=== PATIENT | male | born 1950 | race Caucasian/White ===

== ENCOUNTER → 2020-01-27 | Outpatient (CLI) | payer MEDICARE ==
[~2020-01-27] MED LIST: AEC81 PO; AMLO-97 PO; ASPI-1181 PO; BENA40TA9 PO; CELE200 PO; CELE200C PO; CLOP75TA32 PO; DIGOXIN PO; DILT360T14 PO; FISH1CAP27 PO; HYDR12.54 PO; NEBI20TA2 PO; NITR0.4T50 SL; REGADENOSON 0.4 MG/5 ML PF SYG IVP SCH; RIVA20TA PO; ROSU5TAB12 PO; SPIR25TA6 PO; TADA5TAB PO; VITAD50000 PO
== END | disposition home or self-care (01) ==
LOC: SHCH 07:38
PROVIDERS: ATTEND Internal Medicine Cardiovascular Disease
DX: I21.09 ST elevation (STEMI) myocardial infarction involving other coronary artery of anterior wall (principal); I21.19 ST elevation (STEMI) myocardial infarction involving other coronary artery of inferior wall; I25.10 Atherosclerotic heart disease of native coronary artery without angina pectoris
CPT/HCPCS: 78452; 93017; 96374; A9500 ×2; J2785

== ENCOUNTER 2020-02-14 05:28 | Day surgery (SDC) | payer MEDICARE ==
[2020-02-14] VITALS (10 sets, daily range): BP systolic 111–157; BP diastolic 61–89
[~2020-02-14 05:28] MED LIST changes: -AMLO-97 PO; -ASPI-1181 PO; -CELE200 PO; -CLOP75TA32 PO; -DIGOXIN PO; -FISH1CAP27 PO; -HYDR12.54 PO; -NEBI20TA2 PO; -REGADENOSON 0.4 MG/5 ML PF SYG IVP SCH; -VITAD50000 PO
[2020-02-14 06:16] LABS: BASOPHILS % (AUTO) 0.8 % (0.0-5.0); EOSINOPHILS % (AUTO) 3.3 % (0.0-8.0); HEMATOCRIT 43.5 % (42-54); LYMPHOCYTES % (AUTO) 29.6 % (21.0-51.0); MEAN CORPUSCULAR HGB CONC 32.2 g/dL (32.0-36.0); MONOCYTES % (AUTO) 7.9 % (3.0-13.0); NEUTROPHILS % (AUTO) 57.3 % (40.0-77.0); PLATELET COUNT (AUTO) 197 K/uL (130-400); RED BLOOD CELL COUNT(AUTO) 5.18 MIL/uL (4.50-6.20); RED CELL DISTRIBUTION WIDTH 14.5 % (11.0-15.5); WHITE BLOOD COUNT (AUTO) 6.6 K/uL (4.8-10.8)
[2020-02-14 06:25] LABS: INR 1.06 (0.85-1.15); PARTIAL THROMBOPLASTIN TIME 29.9 SEC (26.3-35.5); PROTHROMBIN TIME 11.4 SEC (9.6-11.6)
[2020-02-14 06:34] LABS: CREATININE 1.1 mg/dL (0.5-1.5); POTASSIUM 4.4 mmol/L (3.5-5.1)
[2020-02-14 06:36] LABS: APPEARANCE,URINE Clear (CLEAR); BILIRUBIN,URINE Negative (NEGATIVE); COLOR,URINE Yellow (YELLOW); GLUCOSE, URINE (UA) Negative (NEGATIVE); KETONES,URINE Negative (NEGATIVE); LEUKOCYTE ESTERASE ,URINE Negative (NEGATIVE); NITRATE,URINE Negative (NEGATIVE); OCCULT BLOOD,URINE Negative (NEGATIVE); PROTEIN,URINE Negative (NEGATIVE)
[2020-02-14] MEDS ORDERED: IOHEXOL 350 MG/ML 100ML INFUS..BTL IV ONE (07:15)
[2020-02-14] MEDS ORDERED: NITROGLYCERIN 2 MG/VIAL VIAL IV ONE (07:15)
[2020-02-14] MEDS ORDERED: HEPARIN SODIUM 1000UNIT/ML 10ML VIAL ONE (07:15)
[2020-02-14] MEDS ORDERED: LIDOCAINE HCL 2% 20ML ONE (07:16)
[2020-02-14] MEDS ORDERED: IOHEXOL-350 50ML VIAL IV ONE (07:16)
[2020-02-14] MEDS ORDERED: SODIUM CHLORIDE 0.9% 1000ML 1,000 ML IV SCH (08:00)
[2020-02-14] MEDS ORDERED: VITAD50000 PO (08:02)
== END 2020-02-14 12:30 | disposition home or self-care (01) ==
LOC: DAH 05:28
PROVIDERS: ATTEND Internal Medicine Cardiovascular Disease
DX: R94.39 Abnormal result of other cardiovascular function study (principal); I25.119 Atherosclerotic heart disease of native coronary artery with unspecified angina pectoris; I10 Essential (primary) hypertension; E11.9 Type 2 diabetes mellitus without complications; E78.5 Hyperlipidemia, unspecified; I48.20 Chronic atrial fibrillation, unspecified; Z88.8 Allergy status to other drugs, medicaments and biological substances; Z79.01 Long term (current) use of anticoagulants; Z79.899 Other long term (current) drug therapy
CPT/HCPCS: 36415; 71045; 80048; 81003; 85025; 85610; 85730; 93005; 93458; A4215; A4216; A4221; A4222; A4223 ×3; A4606; A4663; C1769; C1894; J1644 ×2; J3490 ×2; J7030; Q9965; Q9967 ×2

== ENCOUNTER 2020-12-27 09:19 | Emergency (ER) | payer MEDICARE ==
[~2020-12-27 09:19] MED LIST changes: +VITAD50000 PO
[2020-12-27] MEDS ORDERED: HYDROCODONE/ACETAMINOPHEN 10/325 MG TAB ONE (12:31)
== END 2020-12-27 13:10 | disposition home or self-care (01) ==
LOC: EDH 09:19
DX: S46.911A Strain of unspecified muscle, fascia and tendon at shoulder and upper arm level, right arm, initial encounter (principal); I48.91 Unspecified atrial fibrillation; I25.10 Atherosclerotic heart disease of native coronary artery without angina pectoris; E78.5 Hyperlipidemia, unspecified; I10 Essential (primary) hypertension; Z88.8 Allergy status to other drugs, medicaments and biological substances; X58.XXXA Exposure to other specified factors, initial encounter; Y93.89 Activity, other specified; Y92.89 Other specified places as the place of occurrence of the external cause; Y99.8 Other external cause status
CPT/HCPCS: 73030

== ENCOUNTER → 2023-11-24 | Outpatient (CLI) | payer MEDICARE ==
[~2023-11-24] MED LIST changes: -BENA40TA9 PO; +BENA40TA92 PO
[2023-11-24 15:21] LABS: BASOPHILS # (AUTO) 0.05 K/uL (0.00-0.20); BASOPHILS % (AUTO) 0.7 % (0.0-5.0); EOSINOPHILS # (AUTO) 0.19 K/uL (0.00-0.70); EOSINOPHILS % (AUTO) 2.6 % (0.0-8.0); HEMATOCRIT 26.2 % (42-54); IMMATURE GRANULOCYTE ABSOLUTE 0.06 K/uL (0-1); LYMPHOCYTES # (AUTO) 1.3 K/uL (1.0-4.8); LYMPHOCYTES % (AUTO) 17.4 % (21.0-51.0); MEAN CORPUSCULAR HEMOGLOBIN 25.4 pg (27.0-33.0); MEAN CORPUSCULAR HGB CONC 29.8 g/dL (32.0-36.0); MEAN CORPUSCULAR VOLUME 85.3 fL (79-99); MONOCYTES # (AUTO) 0.8 K/uL (0.1-1.0); MONOCYTES % (AUTO) 10.8 % (3.0-13.0); NEUTROPHILS # (AUTO) 4.9 K/uL (1.8-7.7); NEUTROPHILS % (AUTO) 67.7 % (40.0-77.0); PLATELET COUNT (AUTO) 198 K/uL (130-400); RED BLOOD CELL COUNT(AUTO) 3.07 MIL/uL (4.50-6.20); RED CELL DISTRIBUTION WIDTH 17.2 % (11.0-15.5); WHITE BLOOD COUNT (AUTO) 7.3 K/uL (4.8-10.8)
[2023-11-24 15:29] LABS: CREATININE 1.2 mg/dL (0.5-1.5); POTASSIUM 4.2 mmol/L (3.5-5.1)
== END | disposition home or self-care (01) ==
LOC: LAB 13:01
PROVIDERS: ATTEND Internal Medicine Cardiovascular Disease
DX: E78.5 Hyperlipidemia, unspecified (principal)
CPT/HCPCS: 36415; 80048; 85025

== ENCOUNTER → 2023-11-28 | Outpatient (CLI) | payer MEDICARE ==
[~2023-11-28] MED LIST changes: +REGADENOSON 0.4 MG/5 ML PF SYG IVP ONE
== END | disposition home or self-care (01) ==
LOC: SHCH 07:49
PROVIDERS: ATTEND Internal Medicine Cardiovascular Disease
DX: I48.91 Unspecified atrial fibrillation (principal); I25.119 Atherosclerotic heart disease of native coronary artery with unspecified angina pectoris
CPT/HCPCS: 78452; 96374; 93017; J2785; A9500 ×2

== ENCOUNTER → 2023-11-29 | Outpatient (CLI) | payer MEDICARE ==
[~2023-11-29] MED LIST changes: -REGADENOSON 0.4 MG/5 ML PF SYG IVP ONE
== END | disposition home or self-care (01) ==
LOC: LAB 10:36
PROVIDERS: ATTEND Internal Medicine Cardiovascular Disease
DX: K92.1 Melena (principal)
CPT/HCPCS: 82270

== ENCOUNTER → 2023-12-20 | Outpatient (CLI) | payer MEDICARE ==
[~2023-12-20] MED LIST changes: -AEC81 PO; -CELE200C PO; +CEPH500C2 PO; +OMEP40CA21 PO; -RIVA20TA PO; -TADA5TAB PO; +UBID100C45 PO
== END | disposition home or self-care (01) ==
LOC: RAH 15:58
PROVIDERS: ATTEND Internal Medicine Cardiovascular Disease
DX: I80.202 Phlebitis and thrombophlebitis of unspecified deep vessels of left lower extremity (principal); R60.0 Localized edema; Z79.899 Other long term (current) drug therapy; I10 Essential (primary) hypertension; I48.20 Chronic atrial fibrillation, unspecified; Z79.01 Long term (current) use of anticoagulants; E78.5 Hyperlipidemia, unspecified
CPT/HCPCS: 93971

== ENCOUNTER → 2023-12-26 | Outpatient (CLI) | payer MEDICARE ==
[2023-12-26 16:28] LABS: BASOPHILS # (AUTO) 0.09 K/uL (0.00-0.20); EOSINOPHILS # (AUTO) 0.35 K/uL (0.00-0.70); HEMATOCRIT 32.2 % (42-54); IMMATURE GRANULOCYTE ABSOLUTE 0.06 K/uL (0-1); LYMPHOCYTES # (AUTO) 1.1 K/uL (1.0-4.8); LYMPHOCYTES % (AUTO) 11.9 % (21.0-51.0); MEAN CORPUSCULAR HEMOGLOBIN 23.5 pg (27.0-33.0); MEAN CORPUSCULAR HGB CONC 29.8 g/dL (32.0-36.0); MEAN CORPUSCULAR VOLUME 78.7 fL (79-99); MONOCYTES % (AUTO) 11.4 % (3.0-13.0); NEUTROPHILS # (AUTO) 6.3 K/uL (1.8-7.7); PLATELET COUNT (AUTO) 492 K/uL (130-400); RED BLOOD CELL COUNT(AUTO) 4.09 MIL/uL (4.50-6.20); RED CELL DISTRIBUTION WIDTH 19.5 % (11.0-15.5); WHITE BLOOD COUNT (AUTO) 8.8 K/uL (4.8-10.8)
== END | disposition home or self-care (01) ==
LOC: LAB 12:59
PROVIDERS: ATTEND Internal Medicine Cardiovascular Disease
DX: E78.5 Hyperlipidemia, unspecified (principal)
CPT/HCPCS: 36415; 85025

== ENCOUNTER → 2023-12-27 | Outpatient (CLI) | payer MEDICARE | END | disposition home or self-care (01) | LOC: LAB 12-26 13:51 | PROVIDERS: ATTEND Internal Medicine Cardiovascular Disease | DX: E78.5 Hyperlipidemia, unspecified (principal) | CPT/HCPCS: 82270 ==

== ENCOUNTER 2024-02-15 07:17 | Day surgery (SDC) | payer MEDICARE ==
[2024-02-13 15:13] LABS: BASOPHILS # (AUTO) 0.07 K/uL (0.00-0.20); EOSINOPHILS # (AUTO) 0.24 K/uL (0.00-0.70); EOSINOPHILS % (AUTO) 3.3 % (0.0-8.0); HEMATOCRIT 34.8 % (42-54); LYMPHOCYTES # (AUTO) 1.5 K/uL (1.0-4.8); LYMPHOCYTES % (AUTO) 20.4 % (21.0-51.0); MEAN CORPUSCULAR HEMOGLOBIN 24.9 pg (27.0-33.0); MEAN CORPUSCULAR HGB CONC 30.7 g/dL (32.0-36.0); MEAN CORPUSCULAR VOLUME 81.1 fL (79-99); MONOCYTES # (AUTO) 0.7 K/uL (0.1-1.0); MONOCYTES % (AUTO) 9.1 % (3.0-13.0); NEUTROPHILS # (AUTO) 4.6 K/uL (1.8-7.7); NEUTROPHILS % (AUTO) 63.5 % (40.0-77.0); PLATELET COUNT (AUTO) 210 K/uL (130-400); RED BLOOD CELL COUNT(AUTO) 4.29 MIL/uL (4.50-6.20); RED CELL DISTRIBUTION WIDTH 21.7 % (11.0-15.5); WHITE BLOOD COUNT (AUTO) 7.3 K/uL (4.8-10.8)
[2024-02-13 15:22] LABS: BILIRUBIN,URINE NEGATIVE (NEGATIVE); GLUCOSE, URINE (UA) NEGATIVE (NEGATIVE); KETONES,URINE NEGATIVE (NEGATIVE); LEUKOCYTE ESTERASE ,URINE 250 Leu/uL (NEGATIVE); NITRATE,URINE NEGATIVE (NEGATIVE); OCCULT BLOOD,URINE LARGE (NEGATIVE); PH,URINE 5.5 (5.0-8.0); PROTEIN,URINE 100 mg/dL (NEGATIVE)
[2024-02-13 15:26] LABS: ADD UA MICROSCOPIC YES; APPEARANCE,URINE CLOUDY (CLEAR); COLOR,URINE DARK YELLOW (YELLOW)
[2024-02-13 15:31] LABS: BACTERIA,URINE MOD /HPF (None Seen); RBC,URINE TNTC /HPF (0-1); SQUAMOUS EPITHELIAL CELL,UR RARE /HPF (0-2); WBC,URINE 51-100 /HPF (0-1)
[2024-02-13 15:38] LABS: INR 0.98 (0.85-1.15); PROTHROMBIN TIME 11.6 SEC (9.6-11.6)
[2024-02-13 15:39] LABS: PARTIAL THROMBOPLASTIN TIME 28.8 SEC (26.3-35.5)
[2024-02-13 15:49] LABS: CREATININE 1.2 mg/dL (0.5-1.3); POTASSIUM 4.3 mmol/L (3.5-5.1)
[2024-02-13 15:58] VITALS: BP 129/72; PULSE 71; RESP 18
[~2024-02-15] VITALS: Ht 185.4 cm; Wt 115.8 kg
[2024-02-15] VITALS (14 sets, daily range): BP systolic 104–128; BP diastolic 50–83; PULSE 67–86; RESP 14–16
[~2024-02-15 07:17] MED LIST changes: +ACET325C6 PO; +AEC81 PO; +ASCO500C18 PO; -CEPH500C2 PO; +CHOL400T4 PO; +CLOP75TA32 PO; +FOLI0.8C PO; -NITR0.4T50 SL; +OMEP20CA12 PO; -OMEP40CA21 PO; -VITAD50000 PO; +VITAMIN B12 PO
[2024-02-15] MEDS ORDERED: SUCCINYLCHOLINE CHLORIDE 20 MG/ML 10 ML VIAL ONE (07:57)
[2024-02-15] MEDS ORDERED: MIDAZOLAM HCL 1 MG/ML 2ML VIAL ONE (07:57)
[2024-02-15] MEDS ORDERED: PROPOFOL 10 MG/ML 20ML VIAL IV ONE (07:57)
[2024-02-15] MEDS ORDERED: FENTANYL CITRATE PF 50 MCG/1 ML 2ML VIAL ONE (07:58)
[2024-02-15] MEDS ORDERED: ROCURONIUM BROMIDE 10MG/1ML 5ML VL ONE (07:58)
[2024-02-15] MEDS: CEFTRIAXONE 1G VIAL ONE (07:59)
[2024-02-15] MEDS: LACTATED RINGERS 1000ML 1,000 ML IV ONE (08:00)
[2024-02-15] MEDS ORDERED: EPHEDRINE SULFATE 50 MG/ML AMPULE ONE (08:01)
[2024-02-15] MEDS ORDERED: PHENYLEPHRINE HCL 10 MG/ML 1ML VIAL IV ONE (08:03)
[2024-02-15] MEDS: CEFTRIAXONE 2GM VIAL IVPB ONE (09:42)
[2024-02-15] MEDS ORDERED: ONDANSETRON 4MG INJ ONE (09:49)
== END 2024-02-15 12:10 | disposition home or self-care (01) ==
LOC: DAH 07:17
PROVIDERS: ATTEND Urology
DX: Z46.6 Encounter for fitting and adjustment of urinary device (principal); N20.1 Calculus of ureter; I10 Essential (primary) hypertension; E78.5 Hyperlipidemia, unspecified; I48.91 Unspecified atrial fibrillation; G47.30 Sleep apnea, unspecified; Z79.899 Other long term (current) drug therapy; Z98.890 Other specified postprocedural states; Z85.51 Personal history of malignant neoplasm of bladder; Z79.01 Long term (current) use of anticoagulants; Z88.8 Allergy status to other drugs, medicaments and biological substances; Z88.3 Allergy status to other anti-infective agents; Z91.041 Radiographic dye allergy status; Z98.49 Cataract extraction status, unspecified eye; Z79.82 Long term (current) use of aspirin
CPT/HCPCS: 80048; 85025; 85610; 85730; 87088; 81001; 36415; 74018; 71045; 93005; 50590; 52310; A4663; J7120; J3010; J0330; J0696 ×2; J3490 ×2; J2250; J2704; J2405; J2371; A4930; A4215; A4223; A4222; A4221; A4600

== ENCOUNTER 2024-02-18 20:11 | Emergency (ER) | payer MEDICARE ==
[~2024-02-18] VITALS: Ht 185.4 cm; Wt 117.5 kg
[2024-02-18 20:47] LABS: BASOPHILS # (AUTO) 0.05 K/uL (0.00-0.20); BASOPHILS % (AUTO) 0.5 % (0.0-5.0); EOSINOPHILS # (AUTO) 0.08 K/uL (0.00-0.70); EOSINOPHILS % (AUTO) 0.7 % (0.0-8.0); HEMATOCRIT 32.4 % (42-54); IMMATURE GRANULOCYTE ABSOLUTE 0.18 K/uL (0-1); LYMPHOCYTES # (AUTO) 0.9 K/uL (1.0-4.8); MEAN CORPUSCULAR HEMOGLOBIN 26.2 pg (27.0-33.0); MEAN CORPUSCULAR HGB CONC 33.3 g/dL (32.0-36.0); MEAN CORPUSCULAR VOLUME 78.5 fL (79-99); MONOCYTES % (AUTO) 8.6 % (3.0-13.0); NEUTROPHILS # (AUTO) 8.9 K/uL (1.8-7.7); NEUTROPHILS % (AUTO) 80.6 % (40.0-77.0); PLATELET COUNT (AUTO) 169 K/uL (130-400); RED BLOOD CELL COUNT(AUTO) 4.13 MIL/uL (4.50-6.20); RED CELL DISTRIBUTION WIDTH 21.6 % (11.0-15.5); WHITE BLOOD COUNT (AUTO) 11.1 K/uL (4.8-10.8)
[2024-02-18 21:10] LABS: ALBUMIN 4.2 g/dL (3.5-5.0); BILIRUBIN,TOTAL 0.8 mg/dL (0.2-1.0); CREATININE 1.5 mg/dL (0.5-1.3); POTASSIUM 4.1 mmol/L (3.5-5.1); TOTAL PROTEIN, SERUM 7.7 g/dL (6.0-8.3)
[2024-02-18] MEDS: ONDANSETRON 4MG INJ IVP ONE (21:15)
[2024-02-18 21:16] LABS: WBC MORPHOLOGY CONSISTENT W/DIFF
[2024-02-18] MEDS: MORPHINE 4 MG SYG IVP ONE (21:16)
[2024-02-18 21:31] LABS: APPEARANCE,URINE CLEAR (CLEAR); BILIRUBIN,URINE NEGATIVE (NEGATIVE); COLOR,URINE LIGHT-YELLOW (YELLOW); GLUCOSE, URINE (UA) NEGATIVE (NEGATIVE); KETONES,URINE NEGATIVE (NEGATIVE); LEUKOCYTE ESTERASE ,URINE NEGATIVE Leu/uL (NEGATIVE); NITRATE,URINE NEGATIVE (NEGATIVE); OCCULT BLOOD,URINE NEGATIVE (NEGATIVE); PROTEIN,URINE NEGATIVE (NEGATIVE); UROBILINOGEN,URINE 0.2 mg/dL (0.2-1.0)
[2024-02-18 21:34] LABS: ADD UA MICROSCOPIC NO
[2024-02-18] MEDS: HYDROCODONE/ACETAMINOPHEN 5/325 MG TAB PO ONE (23:17)
[2024-02-18] MEDS: TAMSULOSIN HCL 0.4 MG CAP.ER.24H PO ONE (23:17)
[2024-02-18 23:23] VITALS: BP 136/72; PULSE 78; RESP 18; O2SAT 97
== END 2024-02-18 23:51 | disposition home or self-care (01) ==
LOC: EDH 20:11
DX: R14.0 Abdominal distension (gaseous) (principal); N20.1 Calculus of ureter; I12.9 Hypertensive chronic kidney disease with stage 1 through stage 4 chronic kidney disease, or unspecified chronic kidney disease; N18.9 Chronic kidney disease, unspecified; Z79.82 Long term (current) use of aspirin; Z79.899 Other long term (current) drug therapy; Z98.890 Other specified postprocedural states; Z88.8 Allergy status to other drugs, medicaments and biological substances
CPT/HCPCS: 99285; 74176; 96374; 96375; 80053; 83690; 85025; 81003; 36415; J2405; J2270

== ENCOUNTER → 2024-02-20 | Outpatient (CLI) | payer MEDICARE | END | disposition home or self-care (01) | LOC: RAH 15:18 | PROVIDERS: ATTEND Urology | DX: N20.0 Calculus of kidney (principal); M47.815 Spondylosis without myelopathy or radiculopathy, thoracolumbar region | CPT/HCPCS: 74018 ==

== ENCOUNTER → 2024-02-29 | Outpatient (CLI) | payer MEDICARE | END | disposition home or self-care (01) | LOC: RAH 11:17 | PROVIDERS: ATTEND Urology | DX: N20.1 Calculus of ureter (principal) | CPT/HCPCS: 74018 ==

== ENCOUNTER 2025-10-30 10:49 | Inpatient (IN) | payer MEDICARE ==
[~2025-10-30] VITALS: Ht 185.4 cm; Wt 122.5 kg
[2025-10-30 11:00] VITALS: O2SAT 97
--- NOTE | 2025-10-30 11:39 | HP ---
[facility] HISTORY AND PHYSICAL Date of Service: Oct 30, 2025 Time of Service: 11:39 HISTORY OF PRESENT ILLNESS: 75 Year old Male past medical history of hypertension, hyperlipidemia, history of atrial fibrillation status post Watchman device, history of chronic anemia, history of bladder cancer being followed by Urology as outpatient who presented to the hospital secondary to pain and swelling in the bilateral lower extremity. Patient states his symptoms have been present for the past four weeks. Patient noted swelling in the lower extremities bilaterally and he has developed multiple wounds in his right and left lower extremity. He is also having yellowish serous drainage from both the wounds bilaterally. He denies any fever, chills, chest pain, shortness of breath, abdominal pain, nausea, vomiting. Denied any falls, syncopal episode. He has not seen wound care yet but was going to follow up with Dr. Tahir dacosta as outpatient. He went to see Dr. Ricardo today with Cardiology. He was admitted directly from cardiology clinic for concern for critical limb ischemia. The patient additionally takes Teachey 7.5 mg q.6 hours PRN and states his pain is 10/10 in intensity. He also is on gabapentin at home. Denied any constipation, diarrhea. He has been passing flatus a two. Additionally he has a history of bladder cancer which is being followed by Urology. He is currently not on chem otherapy. His urologist is in [place]. Labs are currently pending REVIEW OF SYSTEMS CONSTITUTIONAL: Denies fevers, chills, or night sweats. No unintentional weight loss reported. NEUROLOGICAL: Denies headache, amaurosis fugax, motor weakness, sensory deficit, vertigo/spinning sensation, gait abnormalities, or tremors. ENT: No hearing loss, otalgia, otorrhea, rhinitis, rhinorrhea, hoarseness, or sore throat. CARDIOVASCULAR: Denies any exertional angina, dyspnea on exertion, orthopnea, paroxysmal nocturnal dyspnea, palpitations, life-threatening arrhythmias, claudication. PULMONARY: Denies any shortness of breath, cough, phlegm/sputum, hemoptysis, pleuritic chest pain. SLEEP: Denies morning headaches, daytime somnolence or napping. Denies difficulty falling asleep, staying asleep, waking from sleep. Denies knowledge of snoring. GASTROINTESTINAL: Denies any type of dysphagia to either liquids or solids. Denies nausea, vomiting, pyrosis, early satiety, abdominal pain, diarrhea, constipation, or changes in stool consistency or caliber. Denies coffee-ground emesis, hematemesis, hematochezia, or melanotic stools. GENITOURINARY: Denies frequency, urgency, nocturia, hematuria or incontinence (Storage/Irritative symptoms.) Low urinary stream, straining to void, urinary intermittency or hesitancy, splitting of the voiding stream, terminal dribbling. ENDOCRINOLOGIC: Denies polyuria, polydipsia, polyphagia or heat/cold intolerances. HEMATOLOGIC: Denies thrombophilia/previous clots, or coagulopathy/bleeding disorders. ONCOLOGIC: Denies personal history of malignancy. DERMATOLOGIC: Open wound on bilateral lower extremity. PSYCHIATRIC: Denies any suicidal or homicidal ideation. Denies hallucinations. PAST MEDICAL HISTORY: Hypertension, hyperlipidemia, history of atrial fibrillation status post Watchman device, history of chronic anemia, history of bladder cancer PAST SURGICAL HISTORY: History of Watchman device PAST SOCIAL HISTORY: Denied any smoking, alcohol, drug use FAMILY HISTORY: Denied any pertinent family history Coded Allergies: metoprolol (Unverified Allergy, Unknown, 02/13/24) niacin (Unverified Allergy, Unknown, FEELS SKIN CRAWLING, 12/02/15) pantoprazole (Unverified Allergy, Unknown, 02/13/24) Uncoded Allergies: IV IODINE (Allergy, Mild, 02/13/24) COGARD (Adverse Reaction, Unknown, BURNING TO CHEST, 12/02/15) PHYSICAL EXAM GENERAL APPEARANCE: The patient is awake, alert, and oriented, in no acute cardiopulmonary distress. NEUROLOGICAL: Cranial nerves II-XII grossly intact. Motor is 5/5 in bilateral upper and lower extremities proximal to distal. No sensory deficits. HEENT: Face is symmetric. Pupils are equal and reactive. Extraocular movements are intact. NECK: Supple. No JVD. No thyromegaly. No submental, submandibular, pre- /postauricular, occipital or supraclavicular lymphadenopathy. CHEST: Normal chest expansion. No Telemetry. LUNGS: Absence of any rales, rhonchi or any wheezing. CARDIOVASCULAR: Regular. S1 and S2 normal. Has a murmur present in the right upper sternal border 3/6 ABDOMEN: Soft, nontender, and nondistended. There is no rebound, voluntary guarding, or rigidity. : Deferred. No Dawkins. EXTREMITIES: Patient has swelling on bilateral lower extremity. SKIN: He has a superficial ulcers noted on the mid leg of the right lower extremity additionally on both the ankles on the anterior aspect there is superficial ulcers noted. There is serous yellowish colored drainage emanating from both the legs. He has a dressing present which is with serous drainage. Vital Sign (Last 24 Hours) 10/30/25 10:51 Pulse 86 Resp 20 B/P (MAP) 123/75 Pulse Ox 99 O2 Delivery Room Air LABS: DIAGNOSTICS / RADIOLOGY: [ ] ASSESSMENT: Bilateral lower extremity swelling with concern for chronic venous stasis POA Possible critical limb ischemia bilateral legs POA rule out Superficial ulcers on bilateral lower extremity with serous drainage POA Hypertension Hyperlipidemia History of chronic anemia History of bladder cancer being followed by Urology as outpatient Systolic murmur PLAN: - patient to be admitted to [facility] -in reference to critical limb ischemia and bilateral lower extremity swelling. We will obtain a venous Doppler and arterial Doppler. Cardiology has been consulted. Tentative plan for bilateral venogram tomorrow for further evaluation. Obtain wound care consultation -obtain CBC BMP procalcitonin, CRP. -if fever or inflammatory markers are elevated. We will start patient on antibiotics -obtain home medications she will be reconciled once available -patient will be started on morphine for pain control. The patient will also be on Teachey which he takes chronically for pain. -check TSH, hemoglobin A1c -further orders per hospitalization course. Advanced Care Planning Which of the following were discussed: Hospice care: Yes __ No _x_ Therapeutic options: Yes __ No __ Advance directives: Yes __ No __ Other discussions: Discussed with who?: patient (Patient, family or surrogates) Voluntary nature of this service was explained to the patient? Yes _x_ No __ Amount of time spent: 25 minutes CARLOS Dorantes MD, MD Oct 30, 2025 11:39
[2025-10-30] MEDS ORDERED: MAGNESIUM 2GM PREMIX 50ML 50 ML IV PRN (12:00)
[2025-10-30] MEDS ORDERED: PoTASSium chloRIDE 20MEQ ER 20 MEQ ERTAB PO PRN (12:00)
[2025-10-30] MEDS ORDERED: PoTASSium chl 10% ELIXIR 20MEQ 20 MEQ/15 ML UDCUP PO PRN (12:00)
[2025-10-30 12:06] LABS: IMMATURE GRANULOCYTE ABSOLUTE 0.09 K/uL (0-1); NUCLEATED RED BLOOD CELLS 0.0 % (0.0-0.19); PLATELET COUNT (AUTO) 216 K/uL (130-400); RED BLOOD CELL COUNT(AUTO) 3.64 MIL/uL (4.50-6.20); RED CELL DISTRIBUTION WIDTH 16.0 % (11.0-15.5); WHITE BLOOD COUNT (AUTO) 7.3 K/uL (4.8-10.8)
[2025-10-30 12:15] LABS: INR 1.2 (0.85-1.15)
[2025-10-30 12:26] LABS: CREATININE 1.4 mg/dL (0.5-1.3); GLOMERULAR FILTR. RATE CALC 52.0 mL/min (>90); GLUCOSE,RANDOM 95.0 mg/dL (70-105); SODIUM SERUM 137.0 mmol/L (136-145); UREA NITROGEN, BLOOD 25.0 mg/dL (7-18)
--- NOTE | 2025-10-30 14:13 | HMCIMG ---
EXAM: US for Deep Venous Thrombosis, bilateral Lower Extremity. CLINICAL HISTORY: Leg Pain and Swelling TECHNIQUE: Real-time ultrasound scan of the veins of the bilateral lower extremity with color Doppler flow, spectral waveform analysis and compression. COMPARISON: None provided. FINDINGS: DEEP VEINS: The common femoral, superficial femoral, and popliteal veins are echolucent and compressible. There is normal color Doppler flow throughout. The visualized calf veins appear patent. SOFT TISSUES: No popliteal fossa cyst or other abnormalities. IMPRESSION: No deep venous thrombosis evident on bilateral lower extremity examination. /[place]
--- NOTE | 2025-10-30 14:19 | NUR ---
[facility] Consult: Patient assessed by wound healing team. See wound assessment. Assessment and recommendations provided to primary nurse. Education provided to patient r/t to wounds, treatment, and management. Wound care done.
--- NOTE | 2025-10-30 14:32 | NUR ---
DCP:HOME Pt is a [place] from [place], [place]. Pt lives her in a RV with his . Pt denies having any DME, home health, or provider services. Pt states that he can complete ADLs independently. PCP is Dr. Isaias Viera and uses [facility] for any RX needs. At [place] pt will want to go home and family can assist with transportation.
--- NOTE | 2025-10-30 14:40 | HMCIMG ---
EXAM: US Duplex bilateral Lower Extremity Arteries. CLINICAL HISTORY: asseess for PVD TECHNIQUE: Real-time ultrasound scan of the arteries of the bilateral lower extremity with 2-D mcduffie scale, color Doppler flow and spectral waveform analysis. COMPARISON: None provided. FINDINGS: COMMON FEMORAL ARTERY: Right HOG CONFINEMENT SYSTEM MANAGER PSV: 113 cm/sec, triphasic Left HOG CONFINEMENT SYSTEM MANAGER PSV: 149 cm/sec, triphasic SUPERFICIAL FEMORAL ARTERY: Right SFA proximal PSV: 109 cm/sec, triphasic Right SFA mid PSV: 106 cm/sec, triphasic Right SFA distal PSV: 159 cm/sec, triphasic Left SFA proximal PSV: 174 cm/sec, triphasic Left SFA mid PSV: 141 cm/sec, triphasic Left SFA distal PSV: 127 cm/sec, triphasic POPLITEAL ARTERY: Right popliteal proximal PSV: 147 cm/sec, biphasic Right popliteal distal PSV: 81 cm/sec, monophasic Left popliteal proximal PSV: 132 cm/sec, biphasic Left popliteal distal PSV: 146 cm/sec, monophasic CALF ARTERIES: Right TELEVISION WRITER PSV: 165 cm/sec, triphasic Right STACY distal PSV: 120 cm/sec, triphasic Right DPA PSV: 85 cm/sec, triphasic Left TELEVISION WRITER PSV: 152 cm/sec, triphasic Left STACY distal PSV: 113 cm/sec, triphasic Left DPA PSV: 60 cm/sec, triphasic Right and left STACY, TELEVISION WRITER, and DPA demonstrate hyperemic flow. Multilevel bilateral atheromatous changes are visualized. IMPRESSION: 1. No hemodynamically significant arterial stenosis in bilateral lower extremities. /[place]
[2025-10-30 16:00] VITALS: BP 136/74; PULSE 78; RESP 16; TEMP 98.6
--- NOTE | 2025-10-30 16:27 | CONS ---
CONSULTATION NOTE Date of Service: Oct 30, 2025 Reason for Consultation: [ Bilateral lower leg wounds ] Requesting Physician: [ Dr. Encarnacion ] HISTORY OF PRESENT ILLNESS: Patient evaluated at bedside in room ER-11 for wound care evaluation for bilateral lower leg wounds. Patient reports wounds started 4 weeks ago and he was applying Silvadene as ordered by his PCP. Patient reports wounds have been worsening with pain and yellow discharge. Patient was to have initial evaluation by Dr. Haro today with [facility] but was sent to [facility] as direct admit from cardiology clinic for concern for critical limb ischemia. The patient is a 75 Year old Male with a past medical history of hypertension, hyperlipidemia, history of atrial fibrillation status post Watchman device, history of chronic anemia, history of bladder cancer being followed by Urology as outpatient He denies any fever, chills, chest pain, shortness of breath, abdominal pain, nausea, vomiting. Denied any falls, syncopal episode. He The patient additionally takes Vevay 7.5 mg q.6 hours PRN and states his pain is 10/10 in intensity. He also is on gabapentin at home. Denied any constipation, diarrhea. He has been passing flatus a two. Additionally he has a history of bladder cancer which is being followed by Urology. He is currently not on chemotherapy. His urologist is in [place]. REVIEW OF SYSTEMS CONSTITUTIONAL: Denies fever, chills, or fatigue. HEAD/FACE: No signs of trauma. EENT: Denies eye pain, blurred vision, double vision, or light sensitivity. RESPIRATORY: Denies shortness of breath, cough, wheezing CARDIOVASCULAR: Denies chest pain, palpitation, syncope GASTROINTESTINAL/ABDOMINAL: Denies abdominal pain, constipation, diarrhea, nausea or vomiting GENITOURINARY: Denies dysuria or hematuria. MUSCULOSKELETAL: Denies joint pain, tenderness, or trauma. INTEGUMENTARY: Denies rash or itchiness NEUROLOGICAL/PSYCH: Denies anxiety, depression, heat or cold intolerance. PAST MEDICAL HISTORY: Hypertension, hyperlipidemia, history of atrial fibrillation status post Watchman device, history of chronic anemia, history of bladder cancer PAST SURGICAL HISTORY: History of Watchman device PAST SOCIAL HISTORY: Denied any smoking, alcohol, drug use FAMILY HISTORY: Denied any pertinent family history Coded Allergies: metoprolol (Unverified Allergy, Unknown, 02/13/24) niacin (Unverified Allergy, Unknown, FEELS SKIN CRAWLING, 1/13/16) pantoprazole (Unverified Allergy, Unknown, 02/13/24) Uncoded Allergies: IV IODINE (Allergy, Mild, 02/13/24) COGARD (Adverse Reaction, Unknown, BURNING TO CHEST, 12/02/15) PHYSICAL EXAM EYES: Anicteric. Pupils equal and reactive. HENT: No oral thrush seen, moist Oral mucosa NECK: Supple, no JVD or thyromegaly. LUNGS: Good air entry. No rales, no rhonchi. CARDIOVASCULAR: S1, S2 regular. No murmur heard. + 2 edema noted to bilateral lower legs ABDOMEN: Soft, non tender, bowel sounds present, no organomegaly CENTRAL NERVOUS SYSTEM: Awake, alert, oriented x 3. No focal deficits. SKIN: Ulcers noted left lateral and medical leg and ankle, right anterior and medial leg and ankle, and right dorsal foot. Ulcers noted with granulation and slough with periwound erythema with serous drainage. No foul odor noted. LYMPHATICS: No peripheral lymphadenopathy MUSCULOSKELETAL: No joint swelling, erythema or tenderness. EXTREMITIES: No cyanosis or clubbing BACK: No deformity GENITOURINARY: No dysuria or hematuria Vital Sign (Last 24 Hours) 10/30/25 10:51 Pulse 86 Resp 20 B/P (MAP) 123/75 Pulse Ox 99 O2 Delivery Room Air LABS: Laboratory: Test 10/30/25 11:49 Range/Units White Blood Count 7.3 4.8-10.8 K/uL Red Blood Count 3.64 L 4.50-6.20 MIL/uL Hemoglobin 9.7 L 14.0-18.0 g/dL Hematocrit 31.4 L 42-54 % Mean Corpuscular Volume 86.3 79-99 fL Mean Corpuscular Hemoglobin 26.6 L 27.0-33.0 pg Mean Corpuscular Hemoglobin Concent 30.9 L 32.0-36.0 g/dL Red Cell Distribution Width 16.0 H 11.0-15.5 % Platelet Count 216 130-400 K/uL Mean Platelet Volume 10.5 7.5-10.5 fL Immature Granulocyte % (Auto) 1.2 H 0-1 % Neutrophils (%) (Auto) 70.1 40.0-77.0 % Lymphocytes (%) (Auto) 15.0 L 21.0-51.0 % Monocytes (%) (Auto) 8.6 3.0-13.0 % Eosinophils (%) (Auto) 4.1 0.0-8.0 % Basophils (%) (Auto) 1.0 0.0-5.0 % Neutrophils # (Auto) 5.1 1.8-7.7 K/uL Lymphocytes # (Auto) 1.1 1.0-4.8 K/uL Monocytes # (Auto) 0.6 0.1-1.0 K/uL Eosinophils # (Auto) 0.30 0.00-0.70 K/uL Basophils # (Auto) 0.07 0.00-0.20 K/uL Absolute Immature Granulocyte (auto 0.09 0-1 K/uL Nucleated Red Blood Cells 0.0 0.0-0.19 % Red Blood Cell Morphology See comments Prothrombin Time 12.5 H 9.6-11.6 SEC Prothromb Time International Ratio 1.20 H 0.85-1.15 Activated Partial Thromboplast Time 29.3 26.3-35.5 SEC Sodium Level 137 136-145 mmol/L Potassium Level 4.1 3.5-5.1 mmol/L Chloride Level 99 L 101-111 mmol/L Carbon Dioxide Level 28 21-32 mmol/L Blood Urea Nitrogen 25 H 7-18 mg/dL Creatinine 1.4 H 0.5-1.3 mg/dL Glomerular Filtration Rate Calc 52 >90 mL/min Random Glucose 95 70-105 mg/dL Hemoglobin A1c 6.2 H 4.0-6.0 % Estimated Average Glucose (eAG) 131 H 70-126 mg/dL Total Calcium 9.2 8.5-10.1 mg/dL C-Reactive Protein, Quantitative 43.10 H 0.5-3.0 mg/L Procalcitonin < 0.05 L 0.05-0.5 ng/mL Thyroid Stimulating Hormone (TSH) 6.88 H 0.36-3.74 uIU/mL DIAGNOSTICS / RADIOLOGY: [ ] PROBLEM LIST : Chronic venous hypertension with ulcer to bilateral lower legs Non pressure chronic ulcer of left lower leg, fat layer exposed Non pressure chronic ulcer of right lower leg, fat layer exposed Non pressure chronic ulcer of right foot, fat layer exposed PLAN: Wound culture of left and right leg ulcers collected Wound care to bilateral lower leg and right foot ulcer : Cleanse with normal saline, pat dry, apply vashe wet to dry, cover with gauze, wrap with kerlix secure with tape change daily and prn Keep wounds clean and dry Offloading/reposition q 2 hours Comorbidities per primary care team Further Management per hospital course. Thank You for the consult and allowing us to participate in the care of this patient. ATTESTATION BY PHYSICIAN I have seen and examined the patient. I reviewed the documentation, medical decision making, and treatment plan as noted by the mid-level provider above. I agree with the findings and plan of care. ANA HARO MD, MICHELLE A TANK TENDER Oct 30, 2025 16:26 ANA HARO MD Nov 01, 2025 13:06
--- NOTE | 2025-10-30 17:22 | NUR ---
Report given to TABITHA Flores--all questions answered. V/S: HR 70 A-fib, B/P 136/74mmHg, Resp 15, O2 Sat 96%. Pt. transferred via stretcher to Room 403--no acute distress noted.
--- NOTE | 2025-10-30 17:30 | NUR ---
PT arrived to room via stretcher. A&x4 able to make needs resp = ands unlabored bilat, PERRLA, BUE pulses = & regular, abd soft & round + bowel sounds x 4 quads. educated PT on safety and hospital environment. pt verbally acknowledged understanding. Bed @ lowest position call light in reach.
[2025-10-30 17:46] VITALS: O2SAT 95
[2025-10-30] MEDS: 0.9%NACL 1000ML 1,000 ML IV SCH (19:32)
[2025-10-30 20:00] VITALS: BP 163/88; PULSE 101; RESP 18; TEMP 97.6; O2SAT 97
[2025-10-30] MEDS: FAMOTIDINE 20MG VIAL IV SCH (20:56)
[2025-10-30] MEDS: ASPIRIN 81 MG EC TAB PO SCH (20:56)
[2025-10-30] MEDS: LISINOPRIL 40 MG TABLET PO SCH (20:58)
[2025-10-31] VITALS (16 sets, daily range): BP systolic 123–178; BP diastolic 60–104; PULSE 74–113; RESP 17–20; TEMP 97.6–98.1; O2SAT 96
[2025-10-31 07:12] LABS: IMMATURE GRANULOCYTE ABSOLUTE 0.06 K/uL (0-1); NUCLEATED RED BLOOD CELLS 0.0 % (0.0-0.19); PLATELET COUNT (AUTO) 185 K/uL (130-400); RED BLOOD CELL COUNT(AUTO) 3.37 MIL/uL (4.50-6.20); RED CELL DISTRIBUTION WIDTH 16.0 % (11.0-15.5); WHITE BLOOD COUNT (AUTO) 6.1 K/uL (4.8-10.8)
[2025-10-31 07:19] LABS: CREATININE 1.3 mg/dL (0.5-1.3); GLOMERULAR FILTR. RATE CALC 57.0 mL/min (>90); GLUCOSE,RANDOM 110.0 mg/dL (70-105); SODIUM SERUM 138.0 mmol/L (136-145); UREA NITROGEN, BLOOD 24.0 mg/dL (7-18)
[2025-10-31] MEDS ORDERED: IODIXANOL 320 MG/ML 100 ML VIAL ONE (08:45)
[2025-10-31] MEDS ORDERED: LIDOCAINE HCL 400MG/20ML VIAL ONE (08:45)
[2025-10-31] MEDS ORDERED: NITROGLYCERIN 50MG VIAL ONE (08:46)
[2025-10-31] MEDS ORDERED: HEParin-NS 1,000 UNIT/500 ML 1,500 ML IV ONE (08:46)
[2025-10-31] MEDS ORDERED: MIDAZOLAM HCL 1 MG/ML 2ML VIAL ONE ×2 (08:56→09:14)
[2025-10-31] MEDS: SPIRONOLACTONE 25 MG TAB PO SCH (09:00)
[2025-10-31] MEDS: ASCORBIC ACID 500 MG TAB PO SCH (09:00)
[2025-10-31] MEDS: UBIDECARENONE 100 MG PO SCH (09:00)
--- NOTE | 2025-10-31 10:10 | PRN ---
Procedure Note INDICATION FOR PROCEDURE: [] Venous ulcerations Venous insufficiency Iliac vein compression Peripheral arterial disease PROCEDURE: [] Conscious sedation Bilateral common femoral arterial sheath placements 6 Moroccan on left 5 Moroccan on right Left common femoral vein sheath placement 9 Moroccan Bilateral common femoral venogram Intravascular ultrasound of IVC, bilateral common iliac external iliac common femoral veins Abdominal aortogram with bilateral lower extremity runoff DATE OF PROCEDURE: 10/31/2025 ELECTRONIC ASSEMBLER: Gordy Ricardo MD, F.A.C.C. PROCEDURE NOTE: [] Patient was brought to catheterization suite and prepped and draped in sterile fashion. An IV was started if not already in place and both groins were exposed for arterial and venous access. 2% lidocaine was used for local anesthesia then a micro puncture kit was used to gain access and once free flow blood was seen modified Seldinger technique was utilized to place a 9 Moroccan sheath into the left common femoral vein. Same technique was utilized to place a 6 Moroccan sheath into the left common femoral artery. Next a venogram was performed. Next a Glidewire was utilized and placed and an intravascular ultrasound catheter was then used to interrogate the IVC, left common iliac external iliac common femoral vein. Next Omni flush catheter was used to direct the Glidewire to the right common femoral vein. Omni flush catheter was then advanced a right common femoral venogram was then performed. Next the Omni flush catheter was removed over glidewire glidewire was kept in place IVUS catheter was then used to interrogate the right common femoral vein external iliac vein and right common iliac vein. Findings are as described below. Next we tried to perform a runoff via the sheath on the left common femoral artery this was significantly kinked and we are unable to replace it as we could not get it wired. Therefore we then gained access to the right common femoral artery using same above technique and then a 5 Moroccan long sheath or 25 cm sheath was then placed into the right common femoral artery. Next runoff was done of the right lower extremity. Next a Mynx device was used for closure of the right common femoral arteriotomy site. A Vascade was used for closure of the left common femoral vein site. Manual pressure was used for access of the left common femoral arterial site. No complications occurred. FINDINGS: [] Venogram and intravascular ultrasound revealed only a 29% compression noted of the right external iliac vein. The remaining left common iliac right common iliac left external iliac vein and bilateral common femoral veins had no compression noted. The abdominal aortogram revealed no evidence of abdominal aortic aneurysm. Single renal artery on each side patent. Bilateral common iliac external iliac common femoral arteries were tortuous but free of stenosis. Bilateral profunda femoris and SFA were free of any stenosis. Bilateral popliteal arteries were free of any stenosis There was three-vessel runoff noted bilaterally to the foot. IMPRESSION: [] No evidence of significant iliac vein compression No evidence of peripheral arterial disease PLAN: [] Patient will be managed by photo lab specialist and we will need to come up with a plan for outpatient treatment in addition to outpatient analgesics. We will schedule patient for lower extremity venous Dopplers in the office to assess for superficial venous insufficiency. Would recommend tactile pneumatic compression system secondary to significant lymphedema caused by chronic venous insufficiency. GORDY RICARDO MD Oct 31, 2025 10:10
--- NOTE | 2025-10-31 10:14 | PN ---
PROGRESS NOTE PROBLEM LIST: Venous ulcerations bilaterally Lymphedema secondary to chronic venous insufficiency Status post venogram and intravascular ultrasound revealing no evidence of compression Status post abdominal aortogram with bilateral lower extremity runoff revealing no evidence of peripheral arterial disease Persistent atrial fibrillation status post prior Watchman device placement Hypertension INTERIM HISTORY OF PRESENT ILLNESS: Patient is status post runoff with venogram and intravascular ultrasound performed. There was no significant compression noted. There was no significant peripheral arterial disease noted. REVIEW OF SYSTEMS: No fever, headache, chest pain, abdominal pain, nausea, vomiting, or diarrhea. VITAL SIGNS Vital Signs Date Time Temp Pulse Resp B/P (MAP) Pulse Ox O2 Delivery O2 Flow Rate FiO2 10/31/25 08:00 98.1 99 17 134/60 96 Room Air 10/30/25 20:00 0 21 Laboratory Tests 10/30/25 11:49 10/31/25 06:49 LABS/MEDS Laboratory Tests Test 10/30/25 11:49 10/30/25 18:00 10/31/25 06:49 White Blood Count 7.3 K/uL (4.8-10.8) 6.1 K/uL (4.8-10.8) Red Blood Count 3.64 MIL/uL (4.50-6.20) L 3.37 MIL/uL (4.50-6.20) L Hemoglobin 9.7 g/dL (14.0-18.0) L 9.0 g/dL (14.0-18.0) L Hematocrit 31.4 % (42-54) L 28.9 % (42-54) L Mean Corpuscular Volume 86.3 fL (79-99) 85.8 fL (79-99) Mean Corpuscular Hemoglobin 26.6 pg (27.0-33.0) L 26.7 pg (27.0-33.0) L Mean Corpuscular Hemoglobin Concent 30.9 g/dL (32.0-36.0) L 31.1 g/dL (32.0-36.0) L Red Cell Distribution Width 16.0 % (11.0-15.5) H 16.0 % (11.0-15.5) H Platelet Count 216 K/uL (130-400) 185 K/uL (130-400) Mean Platelet Volume 10.5 fL (7.5-10.5) 10.2 fL (7.5-10.5) Immature Granulocyte % (Auto) 1.2 % (0-1) H 1.0 % (0-1) Neutrophils (%) (Auto) 70.1 % (40.0-77.0) 73.3 % (40.0-77.0) Lymphocytes (%) (Auto) 15.0 % (21.0-51.0) L 12.2 % (21.0-51.0) L Monocytes (%) (Auto) 8.6 % (3.0-13.0) 9.6 % (3.0-13.0) Eosinophils (%) (Auto) 4.1 % (0.0-8.0) 2.9 % (0.0-8.0) Basophils (%) (Auto) 1.0 % (0.0-5.0) 1.0 % (0.0-5.0) Neutrophils # (Auto) 5.1 K/uL (1.8-7.7) 4.5 K/uL (1.8-7.7) Lymphocytes # (Auto) 1.1 K/uL (1.0-4.8) 0.8 K/uL (1.0-4.8) L Monocytes # (Auto) 0.6 K/uL (0.1-1.0) 0.6 K/uL (0.1-1.0) Eosinophils # (Auto) 0.30 K/uL (0.00-0.70) 0.18 K/uL (0.00-0.70) Basophils # (Auto) 0.07 K/uL (0.00-0.20) 0.06 K/uL (0.00-0.20) Absolute Immature Granulocyte (auto 0.09 K/uL (0-1) 0.06 K/uL (0-1) Nucleated Red Blood Cells 0.0 % (0.0-0.19) 0.0 % (0.0-0.19) Red Blood Cell Morphology See comments Prothrombin Time 12.5 SEC (9.6-11.6) H Prothromb Time International Ratio 1.20 (0.85-1.15) H Activated Partial Thromboplast Time 29.3 SEC (26.3-35.5) Sodium Level 137 mmol/L (136-145) 138 mmol/L (136-145) Potassium Level 4.1 mmol/L (3.5-5.1) 4.1 mmol/L (3.5-5.1) Chloride Level 99 mmol/L (101-111) L 101 mmol/L (101-111) Carbon Dioxide Level 28 mmol/L (21-32) 28 mmol/L (21-32) Blood Urea Nitrogen 25 mg/dL (7-18) H 24 mg/dL (7-18) H Creatinine 1.4 mg/dL (0.5-1.3) H 1.3 mg/dL (0.5-1.3) Glomerular Filtration Rate Calc 52 mL/min (>90) 57 mL/min (>90) Random Glucose 95 mg/dL (70-105) 110 mg/dL (70-105) H Hemoglobin A1c 6.2 % (4.0-6.0) H Estimated Average Glucose (eAG) 131 mg/dL (70-126) H Total Calcium 9.2 mg/dL (8.5-10.1) 8.9 mg/dL (8.5-10.1) C-Reactive Protein, Quantitative 43.10 mg/L (0.5-3.0) H Procalcitonin < 0.05 ng/mL (0.05-0.5) L Thyroid Stimulating Hormone (TSH) 6.88 uIU/mL (0.36-3.74) H D-Dimer Quantitative (PE/DVT) 1019 ng/mL (0-500) *H B-Type Natriuretic Peptide 100 pg/mL (0-100) Current Medications Famotidine 20 mg Q24H IV Last administered on 10/30/25at 20:56; Start 10/30/25 at 21:00; Stop 11/29/25 at 20:59 Morphine Sulfate 2 mg Q6H PRN IVP; Start 10/30/25 at 12:00; Stop 10/30/25 at 11:45; Status DC Hydralazine HCl 10 mg Q6H PRN IV; Start 10/30/25 at 12:00; Stop 11/29/25 at 11:59 Acetaminophen 500 mg Q6H PRN PO; Start 10/30/25 at 12:00; Stop 11/29/25 at 11:59 Acetaminophen/ Hydrocodone Bitart 1 tab Q8H PRN PO Last administered on 10/30/25at 23:06; Start 10/30/25 at 12:00; Stop 11/04/25 at 11:59 Potassium Chloride 100 ml @ 100 mls/hr AD PRN IV; Start 10/30/25 at 12:00; Stop 11/29/25 at 11:59 Potassium Chloride 20 meq AD PRN PO; Start 10/30/25 at 12:00; Stop 11/29/25 at 11:59 Potassium Chloride 20 meq AD PRN PO; Start 10/30/25 at 12:00; Stop 11/29/25 at 11:59 Magnesium Sulfate 50 ml @ 0 mls/hr PROTOCOL PRN IV; Start 10/30/25 at 12:00; Stop 11/29/25 at 11:59 Morphine Sulfate 2 mg Q2HPRN PRN IVP; Start 10/30/25 at 12:00; Stop 10/30/25 at 11:50; Status DC Morphine Sulfate 2 mg Q4H PRN IVP; Start 10/30/25 at 12:00; Stop 10/30/25 at 11:54; Status DC Morphine Sulfate 2 mg Q4H PRN IVP Last administered on 10/30/25at 16:39; Start 10/30/25 at 12:00; Stop 11/06/25 at 11:59 Aspirin 81 mg HS PO Last administered on 10/30/25at 20:56; Start 10/30/25 at 21:00; Stop 11/29/25 at 20:59 Clopidogrel Bisulfate 75 mg DAILY PO; Start 10/31/25 at 09:00; Stop 11/30/25 at 08:59; Status Hold Spironolactone 25 mg DAILY PO; Start 10/31/25 at 09:00; Stop 11/30/25 at 08:59 Ascorbic Acid 500 mg DAILY PO; Start 10/31/25 at 09:00; Stop 11/30/25 at 08:59 Lisinopril 40 mg HS PO Last administered on 10/30/25at 20:58; Start 10/30/25 at 21:00; Stop 11/29/25 at 20:59 Home Med (Cholecalciferol (Vitamin D3) 10 MCG) DAILY PO; Start 10/31/25 at 09:00; Stop 11/30/25 at 08:59 Diltiazem HCl 360 mg DAILY PO; Start 10/31/25 at 09:00; Stop 11/30/25 at 08:59 Folic Acid 1 mg DAILY PO; Start 10/31/25 at 09:00; Stop 11/30/25 at 08:59 Home Med (Omeprazole 20 MG) DAILY PO; Start 10/31/25 at 09:00; Stop 10/30/25 at 13:54; Status DC Home Med (Ubidecarenone (Co Q-10) 100 MG) DAILY PO; Start 10/31/25 at 09:00; Stop 11/30/25 at 08:59 Ceftriaxone Sodium 1 gm Q24H IVPB Last administered on 10/30/25at 16:47; Start 10/30/25 at 16:30; Stop 11/09/25 at 16:29 Sodium Chloride 1,000 ml @ 50 mls/hr Q20H IV Last administered on 10/30/25at 19:32; Start 10/30/25 at 19:00; Stop 10/31/25 at 06:59; Status DC Prednisone 20 mg ONCE ONCE PO Last administered on 10/31/25at 08:06; Start 10/31/25 at 08:00; Stop 10/31/25 at 08:01; Status DC Diphenhydramine HCl 50 mg ONCE ONCE PO Last administered on 10/31/25at 08:05; Start 10/31/25 at 08:00; Stop 10/31/25 at 08:01; Status DC Montelukast Sodium 10 mg ONCE ONCE PO Last administered on 10/31/25at 08:05; Start 10/31/25 at 08:00; Stop 10/31/25 at 08:01; Status DC Lidocaine HCl 20 ml STK-MED ONCE .ROUTE; Start 10/31/25 at 08:45; Stop 10/31/25 at 08:45; Status DC Methylprednisolone Sodium Succinate 125 mg STK-MED ONCE .ROUTE; Start 10/31/25 at 08:45; Stop 10/31/25 at 08:45; Status DC Iodixanol 100 ml STK-MED ONCE .ROUTE; Start 10/31/25 at 08:45; Stop 10/31/25 at 08:45; Status DC Heparin Sodium (Porcine) 10,000 unit STK-MED ONCE .ROUTE; Start 10/31/25 at 08:45; Stop 10/31/25 at 08:46; Status DC Heparin Sodium/ Sodium Chloride 1,500 ml @ As Directed STK-MED ONCE IV; Start 10/31/25 at 08:46; Stop 10/31/25 at 08:46; Status DC Nitroglycerin 50 mg STK-MED ONCE .ROUTE; Start 10/31/25 at 08:46; Stop 10/31/25 at 08:47; Status DC Fentanyl Citrate 100 mcg STK-MED ONCE .ROUTE; Start 10/31/25 at 08:55; Stop 10/31/25 at 08:55; Status DC Midazolam HCl 2 mg STK-MED ONCE .ROUTE; Start 10/31/25 at 08:56; Stop 10/31/25 at 08:56; Status DC Methylprednisolone Sodium Succinate 125 mg STK-MED ONCE .ROUTE; Start 10/31/25 at 09:03; Stop 10/31/25 at 09:03; Status DC Methylprednisolone Sodium Succinate 125 mg STK-MED ONCE .ROUTE; Start 10/31/25 at 09:04; Stop 10/31/25 at 09:04; Status DC Midazolam HCl 2 mg STK-MED ONCE .ROUTE; Start 10/31/25 at 09:14; Stop 10/31/25 at 09:14; Status DC PHYSICAL EXAMINATION: GENERAL: No acute distress. HEENT: Normocephalic, atraumatic. CARDIAC: Positive S1 and S2, irregularly irregular. No murmurs. LUNGS: Clear to auscultation bilaterally. ABDOMEN: Bowel sounds present, soft, nontender. EXTREMITIES: Chronic venous stasis changes noted hyperpigmentation seen dramatic sclerosis noted bilaterally with venous ulcerations noted lateral padilla right ankle left NEUROLOGIC: Cranial nerves 2-12 grossly intact. PSYCHIATRIC: Calm. TELEMETRY: Persistent AFib ASSESSMENT: See above PLAN: At this time I think we will follow recommendations by applications specialist. Patient does have chronic superficial venous insufficiency bilaterally which is likely lead to lymphedema and fortunately he has no evidence of significant iliac vein compression on today's evaluation. He will be evaluated for a pneumatic compression device to be used at home for his lymphedema secondary to CVI and compression wraps should help heal this patient up. Follow up venous ultrasound will be done in the office and if he does have indeed superficial venous insufficiency which I highly suspect those can be treated with the ablation but again he will have a multitude approach related to pneumatic compression system to be used nightly in addition to applications specialist and compression wraps and consider physiotherapy with a massage for appropriate lymphatic drainage and continued improvement in healing. Patient has also been in significant pain and we will have to come up with a good program from an analgesic standpoint and pain medication standpoint which patient can tolerate. KATIE WIGGINS MD Oct 31, 2025 10:14
[2025-10-31] MEDS: 0.9%NACL 1000ML 1,000 ML IV SCH (10:30)
--- NOTE | 2025-10-31 10:51 | NUR ---
PATIENT RETURNED TO ROOM VIA STRETCHER ARteriogram, Venogram completed by Dr. Ricardo. Diagnostic only, no interventions. Patient is alert and oriented x 4. Vital signs 143/84; P = 94; O2 = 92% on Room air; R = 18. Patient reports pain to bilateral groin at 4/10. Will administer PRN medication. Patient will lay flat until 1:45pm. Verbalized understanding
--- NOTE | 2025-10-31 11:10 | NUR ---
CARDIOLOGY CONSULT Called [facility] at [phone]. Stayed on line for extended period of time (greater than 10 minutes). Recording continues to loop/repeat and no answer. Will attempt at later time.
--- NOTE | 2025-10-31 11:52 | NUR ---
NURSING NOTE During noon rounding, patient noted with head of bed elevated at 15-20 degrees. Reeducated patient that he would need to remain flat post procedure until 1:45pm this afternoon. Patient verbalized understanding, but stated that the "next time you come back, the head of my bed will be elevated".
--- NOTE | 2025-10-31 12:36 | NUR ---
NURSING NOTE: ANXIETY Responded to patient call light. at bedside and stating, "you need to give him something. He can't lay flat like this. He is about to pull everything out." Patient distracted with television program of choice. Lights dimmed. Will review eMAR for anxiolytic and/or request from medical team if necessary.
--- NOTE | 2025-10-31 12:45 | NUR ---
REASSESSMENT Patient anxiety improving. Patient verbalizes he is tolerating flat position.
--- NOTE | 2025-10-31 13:00 | NUR ---
PATIENT DENIES PREVIOUS ANXIETY REGARDING LYING FLAT POSITION.
[2025-10-31 13:15] LABS: NUCLEATED RED BLOOD CELLS 0.0 % (0.0-0.19); PLATELET COUNT (AUTO) 201.0 K/uL (130-400); RED BLOOD CELL COUNT(AUTO) 3.69 MIL/uL (4.50-6.20); RED CELL DISTRIBUTION WIDTH 16.1 % (11.0-15.5); WHITE BLOOD COUNT (AUTO) 6.5 K/uL (4.8-10.8)
--- NOTE | 2025-10-31 13:15 | NUR ---
PATIENT RESTING QUIETLY. AT BEDSIDE. NO COMPLAINTS VOICED BY PATIENT. ENSURED COMFORT AND WILL RETURN TO FOLLOW UP.
--- NOTE | 2025-10-31 13:15 | NUR ---
[facility] Follow-up: Patient re-assessed by wound healing team, Wound improving. Assessment and recommendations provided to primary nurse Education provided. Wound care done.
--- NOTE | 2025-10-31 14:30 | PN ---
[facility] PROGRESS NOTE Date of Service: Oct 31, 2025 Time of Service: 14:27 SUBJECTIVE: 10/31 the patient has been seen and examined at bedside, discussed with the RN, no acute events overnight, hemodynamically stable, afebrile, saturating normal on room air. Patient was taken to laborer orchard and underwent bilateral common femoral venogram, and abdominal aortogram with bilateral lower extremity runoff. No evidence of significant iliac vein compression. No evidence of peripheral arterial disease. Cardiology input noted and appreciated, recommended wound care management, as well as pain control with the adjustment as needed. Patient will need a repeat lower extremity venous Doppler in the office to assess superficial venous insufficiency. Recommended for now contacted pneumatic compression system secondary to significant lymphedema caused by chronic venous insufficiency. Follow renal function in a.m.. Possible discharge home in the next 24 hours. REVIEW OF SYSTEMS CONSTITUTIONAL: Denies fevers, chills, or night sweats. No unintentional weight loss reported. NEUROLOGICAL: Denies headache, amaurosis fugax, motor weakness, sensory deficit, vertigo/spinning sensation, gait abnormalities, or tremors. ENT: No hearing loss, otalgia, otorrhea, rhinitis, rhinorrhea, hoarseness, or sore throat. CARDIOVASCULAR: Denies any exertional angina, dyspnea on exertion, orthopnea, paroxysmal nocturnal dyspnea, palpitations, life-threatening arrhythmias, claudication. PULMONARY: Denies any shortness of breath, cough, phlegm/sputum, hemoptysis, pleuritic chest pain. SLEEP: Denies morning headaches, daytime somnolence or napping. Denies difficulty falling asleep, staying asleep, waking from sleep. Denies knowledge of snoring. GASTROINTESTINAL: Denies any type of dysphagia to either liquids or solids. Denies nausea, vomiting, pyrosis, early satiety, abdominal pain, diarrhea, constipation, or changes in stool consistency or caliber. Denies coffee-ground emesis, hematemesis, hematochezia, or melanotic stools. GENITOURINARY: Denies frequency, urgency, nocturia, hematuria or incontinence (Storage/Irritative symptoms.) Low urinary stream, straining to void, urinary intermittency or hesitancy, splitting of the voiding stream, terminal dribbling. ENDOCRINOLOGIC: Denies polyuria, polydipsia, polyphagia or heat/cold intolerances. HEMATOLOGIC: Denies thrombophilia/previous clots, or coagulopathy/bleeding disorders. ONCOLOGIC: Denies personal history of malignancy. DERMATOLOGIC: Open wound on bilateral lower extremity. PSYCHIATRIC: Denies any suicidal or homicidal ideation. Denies hallucinations. PHYSICAL EXAM GENERAL APPEARANCE: The patient is awake, alert, and oriented, in no acute cardiopulmonary distress. NEUROLOGICAL: Cranial nerves II-XII grossly intact. Motor is 5/5 in bilateral upper and lower extremities proximal to distal. No sensory deficits. HEENT: Face is symmetric. Pupils are equal and reactive. Extraocular movements are intact. NECK: Supple. No JVD. No thyromegaly. No submental, submandibular, pre- /postauricular, occipital or supraclavicular lymphadenopathy. CHEST: Normal chest expansion. No Telemetry. LUNGS: Absence of any rales, rhonchi or any wheezing. CARDIOVASCULAR: Regular. S1 and S2 normal. Has a murmur present in the right upper sternal border 3/6 ABDOMEN: Soft, nontender, and nondistended. There is no rebound, voluntary guarding, or rigidity. : Deferred. No Dawkins. EXTREMITIES: Patient has swelling on bilateral lower extremity. SKIN: He has a superficial ulcers noted on the mid leg of the right lower extremity additionally on both the ankles on the anterior aspect there is superficial ulcers noted. There is serous yellowish colored drainage emanating from both the legs. He has a dressing present which is with serous drainage. Vital Signs (last 8hr) Date Time Temp Pulse Resp B/P (MAP) Pulse Ox O2 Delivery O2 Flow Rate FiO2 10/31/25 08:00 98.1 99 17 134/60 96 Room Air LABS: Laboratory: Test 10/31/25 13:09 10/31/25 06:49 10/30/25 18:00 10/30/25 11:49 Range/Units White Blood Count 6.5 4.8-10.8 K/uL Red Blood Count 3.69 L 4.50-6.20 MIL/uL Hemoglobin 9.9 L 14.0-18.0 g/dL Hematocrit 31.7 L 42-54 % Mean Corpuscular Volume 85.9 79-99 fL Mean Corpuscular Hemoglobin 26.8 L 27.0-33.0 pg Mean Corpuscular Hemoglobin Concent 31.2 L 32.0-36.0 g/dL Red Cell Distribution Width 16.1 H 11.0-15.5 % Platelet Count 201 130-400 K/uL Mean Platelet Volume 10.2 7.5-10.5 fL Nucleated Red Blood Cells 0.0 0.0-0.19 % Immature Granulocyte % (Auto) 1.0 0-1 % Neutrophils (%) (Auto) 73.3 40.0-77.0 % Lymphocytes (%) (Auto) 12.2 L 21.0-51.0 % Monocytes (%) (Auto) 9.6 3.0-13.0 % Eosinophils (%) (Auto) 2.9 0.0-8.0 % Basophils (%) (Auto) 1.0 0.0-5.0 % Neutrophils # (Auto) 4.5 1.8-7.7 K/uL Lymphocytes # (Auto) 0.8 L 1.0-4.8 K/uL Monocytes # (Auto) 0.6 0.1-1.0 K/uL Eosinophils # (Auto) 0.18 0.00-0.70 K/uL Basophils # (Auto) 0.06 0.00-0.20 K/uL Absolute Immature Granulocyte (auto 0.06 0-1 K/uL Sodium Level 138 136-145 mmol/L Potassium Level 4.1 3.5-5.1 mmol/L Chloride Level 101 101-111 mmol/L Carbon Dioxide Level 28 21-32 mmol/L Blood Urea Nitrogen 24 H 7-18 mg/dL Creatinine 1.3 0.5-1.3 mg/dL Glomerular Filtration Rate Calc 57 >90 mL/min Random Glucose 110 H 70-105 mg/dL Total Calcium 8.9 8.5-10.1 mg/dL D-Dimer Quantitative (PE/DVT) 1019 *H 0-500 ng/mL B-Type Natriuretic Peptide 100 0-100 pg/mL Red Blood Cell Morphology See comments Prothrombin Time 12.5 H 9.6-11.6 SEC Prothromb Time International Ratio 1.20 H 0.85-1.15 Activated Partial Thromboplast Time 29.3 26.3-35.5 SEC Hemoglobin A1c 6.2 H 4.0-6.0 % Estimated Average Glucose (eAG) 131 H 70-126 mg/dL C-Reactive Protein, Quantitative 43.10 H 0.5-3.0 mg/L Procalcitonin < 0.05 L 0.05-0.5 ng/mL Thyroid Stimulating Hormone (TSH) 6.88 H 0.36-3.74 uIU/mL Current Medications Medications (Trade) Dose Ordered Sig/Jennifer Route PRN Reason Start Time Stop Time Status Last Admin Dose Admin Acetaminophen (TYLenol 500MG TAB) 500 mg Q6H PRN PO MILD PAIN (1-3) 10/30/25 12:00 11/29/25 11:59 Acetaminophen/ Codeine Phosphate (TYLenol-coDEINE TAB) 2 tab Q4H PRN PO PAIN LEVEL 4 TO 6 10/31/25 10:30 11/30/25 10:29 Acetaminophen/ Hydrocodone Bitart (VicoDIN ES/ NORco ES 7.5/ 325MG) 1 tab Q8H PRN PO MODERATE PAIN (4-6) 10/30/25 12:00 10/31/25 10:06 DC 10/30/25 23:06 1 TAB Ascorbic Acid (Vitamin C 500mg Tab) 500 mg DAILY PO 10/31/25 09:00 11/30/25 08:59 Aspirin (Aspirin 81mg Ec Tab) 81 mg HS PO 10/30/25 21:00 11/29/25 20:59 10/30/25 20:56 81 MG Ceftriaxone Sodium (ROCEphine 1G INJ) 1 gm Q24H IVPB 10/30/25 16:30 11/09/25 16:29 10/30/25 16:47 1 GM Clopidogrel Bisulfate (plaVIX 75MG) 75 mg DAILY PO 10/31/25 09:00 11/30/25 08:59 Hold Diltiazem HCl (CARDIzem 180MG CD) 360 mg DAILY PO 10/31/25 09:00 11/30/25 08:59 Famotidine (Pepcid 20mg Vial) 20 mg Q24H IV 10/30/25 21:00 11/29/25 20:59 10/30/25 20:56 20 MG Folic Acid (FOLic ACID 1 MG TABLET) 1 mg DAILY PO 10/31/25 09:00 11/30/25 08:59 Home Med (Home Medication) (Cholecalciferol (Vitamin D3) 10 MCG) DAILY PO 10/31/25 09:00 11/30/25 08:59 Home Med (Home Medication) (Omeprazole 20 MG) DAILY PO 10/31/25 09:00 10/30/25 13:54 DC Home Med (Home Medication) (Ubidecarenone (Co Q-10) 100 MG) DAILY PO 10/31/25 09:00 11/30/25 08:59 Hydralazine HCl (APRESOLine 20MG INJ) 10 mg Q6H PRN IV ADMINISTER FOR SBP > 180 10/30/25 12:00 11/29/25 11:59 Lisinopril (Prinivil 40mg) 40 mg HS PO 10/30/25 21:00 11/29/25 20:59 10/30/25 20:58 40 MG Magnesium Sulfate 50 ml @ 0 mls/hr PROTOCOL PRN IV hypomagnesemia 10/30/25 12:00 11/29/25 11:59 Morphine Sulfate (morPHINE 2MG SYG) 2 mg Q2HPRN PRN IVP Pain 10/30/25 12:00 10/30/25 11:50 DC Morphine Sulfate (morPHINE 2MG SYG) 2 mg Q4H PRN IVP SEVERE PAIN (7-10) 10/30/25 12:00 10/30/25 11:54 DC Morphine Sulfate (morPHINE 2MG SYG) 2 mg Q6H PRN IVP SEVERE PAIN (7-10) 10/30/25 12:00 10/30/25 11:45 DC Morphine Sulfate (morPHINE 4MG SYG) 2 mg Q4H PRN IVP SEVERE PAIN (7-10) 10/30/25 12:00 11/06/25 11:59 10/30/25 16:39 2 MG Potassium Chloride 100 ml @ 100 mls/hr AD PRN IV POTASSIUM PROTOCOL 10/30/25 12:00 11/29/25 11:59 Potassium Chloride (K-Dur/Klor-Con 20meq) 20 meq AD PRN PO POTASSIUM PROTOCOL 10/30/25 12:00 11/29/25 11:59 Potassium Chloride (KCl 10% Elixir 20meq/15ml) 20 meq AD PRN PO POTASSIUM PROTOCOL 10/30/25 12:00 11/29/25 11:59 Sodium Chloride 1,000 ml @ 50 mls/hr Q20H IV 10/30/25 19:00 10/31/25 06:59 DC 10/30/25 19:32 50 MLS/HR Sodium Chloride 1,000 ml @ 100 mls/hr Q10H IV 10/31/25 10:30 10/31/25 14:29 Spironolactone (Aldactone 25mg) 25 mg DAILY PO 10/31/25 09:00 11/30/25 08:59 DIAGNOSTICS / RADIOLOGY: [ ] ASSESSMENT: Bilateral lower extremity swelling with concern for chronic venous stasis POA Possible critical limb ischemia bilateral legs POA rule out Superficial ulcers on bilateral lower extremity with serous drainage POA Hypertension Hyperlipidemia History of chronic anemia History of bladder cancer being followed by Urology as outpatient Systolic murmur PLAN: the patient has been seen and examined at bedside, discussed with the RN, no acute events overnight, hemodynamically stable, afebrile, saturating normal on room air. Patient was taken to laborer or[facility] and underwent bilateral common femoral venogram, and abdominal aortogram with bilateral lower extremity runoff. No evidence of significant iliac vein compression. No evidence of peripheral arterial disease. Cardiology input noted and appreciated, recommended wound care management, as well as pain control with the adjustment as needed. Patient will need a repeat lower extremity venous Doppler in the office to assess superficial venous insufficiency. Recommended for now contacted pneumatic compression system secondary to significant lymphedema caused by chronic venous insufficiency.Follow renal function in a.m.. Possible discharge home in the next 24 hours. NEURO: Minimize central acting medications as possible. Fall Precautions. Well lighted room through the day and minimize interruptions through the night to prevent acute delirium. PULMONARY: Supplemental 02 as needed BiPAP as necessary, for respiratory distress Titrate Fio2 to keep Spo2 > or = 90% DuoNebs and CPT as needed IS hourly while awake for pulmonary hygiene prn Out of bed to chair as tolerated Maintain aspiration precautions at all times CARDIOVASCULAR: Follow hemodynamics. Vital signs per facility protocol GI & NUTRITION: Continue nutritional support Aspirations precautions Prokinetic agents and laxatives as needed KIDNEYS & ELECTROLYTES: Strict monitoring of intake and output Daily weights Avoid nephrotoxic agents Monitor electrolytes and replace as needed Goal urine output of 30mL/hr or 0.5mL/kg/hr Medications to be dosed according to renal function. Avoid contrast if possible ENDOCRINE: Maintain blood glucose between 100-180 at all times. Insulin sliding scale for blood glucose management Hypoglycemia and hyperglycemia protocol in place INFECTIOUS DISEASE: Trend temperature, WBC and procalcitonin level Follow cultures, deescalate antibiotics as soon as possible. Panculture if new onset fever HEMATOLOGY & COAGULATION: Monitor H&H. Keep Hgb > 7 Transfuse 1 unit of PRBC for Hgb < 7 Transfuse 1 pack of platelets of platelets < 20, 000 Watch for any signs and symptoms of bleeding SKIN: Pressure ulcer prevention per facility protocol Specialty mattress as needed ORTHO/REHAB Continue PT/OT PRN: MEDICATIONS Tylenol 650 mg po every 4 hrs for fever zofran 4 mg IV every 6 hrs for n/v Hydralazine 5 mg IV every 4 hrs systolic pressure > 160 bowel regiment: lactulose 20 gm PO BID PRN constipation Supportive measures: Continue GI and DVT prophylaxis Disposition: Pending improvement in clinical condition All questions answered time spent: > 35 min LASHAY GERMAIN MD Oct 31, 2025 14:30
--- NOTE | 2025-10-31 15:00 | NUR ---
DISCHARGE PLANNING: *NOT* HOME HEALTH MED AT BEDSIDE WITH PATIENT AND SPOUSE. JAMIE RAZA WITH NO PRIMARY MD. ADVISED THEM THAT FOR HOME HEALTH THEY NEED A PMD, BUT THAT THEY CAN SEE WOUND CARE CLINIC NEXT WEEK FOR OVERSIGHT OF THE WOUND CARE THAT THE PATIENTS SPOUSE HAS ALREADY BEEN DOING, WE NEED TO ENSURE PT HAS THAT NUMBER/INSTRUCTION IN DISCHARGE AND THAT THE SPOUSE IS TAUGHT TOMORROW
--- NOTE | 2025-10-31 16:29 | PN ---
PROGRESS NOTE Date of Service: Oct 31, 2025 Time of Service: 16:26 SUBJECTIVE: Patient is evaluated at bedside in room 403 with patient's at bedside. Patient is awake, alert, and oriented x 3. No signs of distress noted. Patient is s/p venogram and aortogram by Dr. Ricardo today. Impression: No evidence of significant iliac vein compression No evidence of peripheral arterial disease. REVIEW OF SYSTEMS CONSTITUTIONAL: Denies fever, chills, or fatigue. HEAD/FACE: No signs of trauma. EENT: Denies eye pain, blurred vision, double vision, or light sensitivity. RESPIRATORY: Denies shortness of breath, cough, wheezing CARDIOVASCULAR: Denies chest pain, palpitation, syncope GASTROINTESTINAL/ABDOMINAL: Denies abdominal pain, constipation, diarrhea, nausea or vomiting GENITOURINARY: Denies dysuria or hematuria. MUSCULOSKELETAL: Denies joint pain, tenderness, or trauma. INTEGUMENTARY: Denies rash or itchiness NEUROLOGICAL/PSYCH: Denies anxiety, depression, heat or cold intolerance. PHYSICAL EXAM EYES: Anicteric. Pupils equal and reactive. HENT: No oral thrush seen, moist Oral mucosa NECK: Supple, no JVD or thyromegaly. LUNGS: Good air entry. No rales, no rhonchi. CARDIOVASCULAR: S1, S2 regular. No murmur heard. + 2 edema noted to bilateral lower legs ABDOMEN: Soft, non tender, bowel sounds present, no organomegaly CENTRAL NERVOUS SYSTEM: Awake, alert, oriented x 3. No focal deficits. SKIN: Ulcers noted left lateral and medical leg and ankle, right anterior and medial leg and ankle, and right dorsal foot. Ulcers noted with granulation and slough with periwound erythema with serous drainage. No foul odor noted.- Wounds improved LYMPHATICS: No peripheral lymphadenopathy MUSCULOSKELETAL: No joint swelling, erythema or tenderness. EXTREMITIES: No cyanosis or clubbing BACK: No deformity GENITOURINARY: No dysuria or hematuria LABS: Laboratory: Test 10/31/25 13:09 10/31/25 06:49 10/30/25 18:00 10/30/25 11:49 Range/Units White Blood Count 6.5 4.8-10.8 K/uL Red Blood Count 3.69 L 4.50-6.20 MIL/uL Hemoglobin 9.9 L 14.0-18.0 g/dL Hematocrit 31.7 L 42-54 % Mean Corpuscular Volume 85.9 79-99 fL Mean Corpuscular Hemoglobin 26.8 L 27.0-33.0 pg Mean Corpuscular Hemoglobin Concent 31.2 L 32.0-36.0 g/dL Red Cell Distribution Width 16.1 H 11.0-15.5 % Platelet Count 201 130-400 K/uL Mean Platelet Volume 10.2 7.5-10.5 fL Nucleated Red Blood Cells 0.0 0.0-0.19 % Immature Granulocyte % (Auto) 1.0 0-1 % Neutrophils (%) (Auto) 73.3 40.0-77.0 % Lymphocytes (%) (Auto) 12.2 L 21.0-51.0 % Monocytes (%) (Auto) 9.6 3.0-13.0 % Eosinophils (%) (Auto) 2.9 0.0-8.0 % Basophils (%) (Auto) 1.0 0.0-5.0 % Neutrophils # (Auto) 4.5 1.8-7.7 K/uL Lymphocytes # (Auto) 0.8 L 1.0-4.8 K/uL Monocytes # (Auto) 0.6 0.1-1.0 K/uL Eosinophils # (Auto) 0.18 0.00-0.70 K/uL Basophils # (Auto) 0.06 0.00-0.20 K/uL Absolute Immature Granulocyte (auto 0.06 0-1 K/uL Sodium Level 138 136-145 mmol/L Potassium Level 4.1 3.5-5.1 mmol/L Chloride Level 101 101-111 mmol/L Carbon Dioxide Level 28 21-32 mmol/L Blood Urea Nitrogen 24 H 7-18 mg/dL Creatinine 1.3 0.5-1.3 mg/dL Glomerular Filtration Rate Calc 57 >90 mL/min Random Glucose 110 H 70-105 mg/dL Total Calcium 8.9 8.5-10.1 mg/dL D-Dimer Quantitative (PE/DVT) 1019 *H 0-500 ng/mL B-Type Natriuretic Peptide 100 0-100 pg/mL Red Blood Cell Morphology See comments Prothrombin Time 12.5 H 9.6-11.6 SEC Prothromb Time International Ratio 1.20 H 0.85-1.15 Activated Partial Thromboplast Time 29.3 26.3-35.5 SEC Hemoglobin A1c 6.2 H 4.0-6.0 % Estimated Average Glucose (eAG) 131 H 70-126 mg/dL C-Reactive Protein, Quantitative 43.10 H 0.5-3.0 mg/L Procalcitonin < 0.05 L 0.05-0.5 ng/mL Thyroid Stimulating Hormone (TSH) 6.88 H 0.36-3.74 uIU/mL DIAGNOSTICS / RADIOLOGY: [ ] PROBLEM LIST : Chronic venous hypertension with ulcer to bilateral lower legs Non pressure chronic ulcer of left lower leg, fat layer exposed Non pressure chronic ulcer of right lower leg, fat layer exposed Non pressure chronic ulcer of right foot, fat layer exposed PLAN: Wound culture of left and right leg ulcers collected-pending Continue Wound care to bilateral lower leg and right foot ulcer : Cleanse with normal saline, pat dry, apply vashe wet to dry, cover with gauze, wrap with kerlix secure with tape change daily and prn Keep wounds clean and dry Offloading/reposition q 2 hours Comorbidities per primary care team Further Management per hospital course. Thank You for the consult and allowing us to participate in the care of this patient. ATTESTATION BY PHYSICIAN I have seen and examined the patient. I reviewed the documentation, medical decision making, and treatment plan as noted by the mid-level provider above. I agree with the findings and plan of care. ANA COSBY MD, MICHELLE A SCOW HAND Oct 31, 2025 16:29 ANA COSBY MD Nov 01, 2025 13:07
--- NOTE | 2025-10-31 18:45 | NUR ---
TELEMETRY Patient continues on telemetry monitoring. Has remained in A-fib 100s - 120s. Will continue to monitor
--- NOTE | 2025-10-31 18:49 | NUR ---
PATIENT HAS REACHED THREE HOUR ROMEL FOR LYING FLAT STATUS POST ANGIOGRAM, VENOGRAM PROCEDURE Tolerated without complications
[2025-11-01] VITALS: BP 163/97; PULSE 108; RESP 16; TEMP 97.1
[2025-11-01 01:24] VITALS: BP 143/94
[2025-11-01 03:50] LABS: NUCLEATED RED BLOOD CELLS 0.0 % (0.0-0.19); PLATELET COUNT (AUTO) 196.0 K/uL (130-400); RED BLOOD CELL COUNT(AUTO) 3.46 MIL/uL (4.50-6.20); RED CELL DISTRIBUTION WIDTH 15.9 % (11.0-15.5); WHITE BLOOD COUNT (AUTO) 12.1 K/uL (4.8-10.8)
[2025-11-01 04:00] VITALS: BP 148/90; PULSE 103; RESP 16; TEMP 97.7
[2025-11-01 04:16] LABS: ASPARTATE AMINOTRANSFERASE 34.0 U/L (10-37); CREATININE 1.3 mg/dL (0.5-1.3); GLOMERULAR FILTR. RATE CALC 57.0 mL/min (>90); GLUCOSE,RANDOM 152.0 mg/dL (70-105); SODIUM SERUM 139.0 mmol/L (136-145); TOTAL PROTEIN, SERUM 7.6 g/dL (6.0-8.3); UREA NITROGEN, BLOOD 26.0 mg/dL (7-18)
[2025-11-01 07:31] VITALS: BP 137/72; PULSE 83; RESP 16; TEMP 98
[2025-11-01 08:00] VITALS: O2SAT 94
--- NOTE | 2025-11-01 11:11 | DS ---
Discharge Summary Hospital Course Summary: The patient admitted to the hospital 10/30/2025 with the following history of present illness: 75 Year old Male past medical history of hypertension, hyperlipidemia, history of atrial fibrillation status post Watchman device, history of chronic anemia, history of bladder cancer being followed by Urology as outpatient who presented to the hospital secondary to pain and swelling in the bilateral lower extremity. Patient states his symptoms have been present for the past four weeks. Patient noted swelling in the lower extremities bilaterally and he has developed multiple wounds in his right and left lower extremity. He is also having yellowish serous drainage from both the wounds bilaterally. He denies any fever, chills, chest pain, shortness of breath, abdominal pain, nausea, vomiting. Denied any falls, syncopal episode. He has not seen wound care yet but was going to follow up with Dr. Tahir dacosta as outpatient. He went to see Dr. Ricardo today with Cardiology. He was admitted directly from cardiology clinic for concern for critical limb ischemia. The patient additionally takes [place] 7.5 mg q.6 hours PRN and states his pain is 10/10 in intensity. He also is on gabapentin at home. Denied any constipation, diarrhea. He has been passing flatus a two. Additionally he has a history of bladder cancer which is being followed by Urology. He is currently not on chemotherapy. His urologist is in [place]. HOSPITAL COURSE 10/31 the patient has been seen and examined at bedside, discussed with the RN, no acute events overnight, hemodynamically stable, afebrile, saturating normal on room air. Patient was taken to [facility] and underwent bilateral common femoral venogram, and abdominal aortogram with bilateral lower extremity runoff. No evidence of significant iliac vein compression. No evidence of peripheral arterial disease. Cardiology input noted and appreciated, recommended wound care management, as well as pain control with the adjustment as needed. Patient will need a repeat lower extremity venous Doppler in the office to assess super ficial venous insufficiency. Recommended for now contacted pneumatic compression system secondary to significant lymphedema caused by chronic venous insufficiency. Follow renal function in a.m.. Possible discharge home in the next 24 hours. 11/01 today the patient is alert oriented x3, hemodynamically stable, afebrile, saturating normal room air, plan is for the patient to be discharged home. To follow up at Wound Care Clinic as an outpatient as well as with Cardiology as an outpatient. Plan of action discussed with the patient and the at bedside, both agreed and understood the information provided. [employer] Consultant(s): Cardiology and wound care Procedure(s): PROCEDURE NOTE Name: FLAKITA CONSTANTINO Acct: [id number] MR: [id number] : 1950 Admit Date: 10/30/25 GORDY RICARDO MD [facility] [address] [place] [id number] Procedure Note INDICATION FOR PROCEDURE: [] Venous ulcerations Venous insufficiency Iliac vein compression Peripheral arterial disease PROCEDURE: [] Conscious sedation Bilateral common femoral arterial sheath placements 6 Turkish on left 5 Turkish on right Left common femoral vein sheath placement 9 Turkish Bilateral common femoral venogram Intravascular ultrasound of IVC, bilateral common iliac external iliac common femoral veins Abdominal aortogram with bilateral lower extremity runoff DATE OF PROCEDURE: 10/31/2025 INTERACTIVE VIDEO TECHNICIAN: Gordy AmayaCParminderCParminder PROCEDURE NOTE: [] Patient was brought to catheterization suite and prepped and draped in sterile fashion. An IV was started if not already in place and both groins were exposed for arterial and venous access. 2% lidocaine was used for local anesthesia then a micro puncture kit was used to gain access and once free flow blood was seen modified Seldinger technique was utilized to place a 9 Turkish sheath into the left common femoral vein. Same technique was utilized to place a 6 Turkish sheath into the left common femoral artery. Next a venogram was performed. Next a Glidewire was utilized and placed and an intravascular ultrasound catheter was then used to interrogate the IVC, left common iliac external iliac common femoral vein. Next Omni flush catheter was used to direct the Glidewire to the right common femoral vein. Omni flush catheter was then advanced a right common femoral venogram was then performed. Next the Omni flush catheter was removed over glidewire glidewire was kept in place IVUS catheter was then used to interrogate the right common femoral vein external iliac vein and right common iliac vein. Findings are as described below. Next we tried to perform a runoff via the sheath on the left common femoral artery this was significantly kinked and we are unable to replace it as we could not get it wired. Therefore we then gained access to the right common femoral artery using same above technique and then a 5 Turkish long sheath or 25 cm sheath was then placed into the right common femoral artery. Next runoff was done of the right lower extremity. Next a Mynx device was used for closure of the right common femoral arteriotomy site. A Vascade was used for closure of the left common femoral vein site. Manual pressure was used for access of the left common femoral arterial site. No complications occurred. FINDINGS: [] Venogram and intravascular ultrasound revealed only a 29% compression noted of the right external iliac vein. The remaining left common iliac right common iliac left external iliac vein and bilateral common femoral veins had no compression noted. The abdominal aortogram revealed no evidence of abdominal aortic aneurysm. Single renal artery on each side patent. Bilateral common iliac external iliac common femoral arteries were tortuous but free of stenosis. Bilateral profunda femoris and SFA were free of any stenosis. Bilateral popliteal arteries were free of any stenosis There was three-vessel runoff noted bilaterally to the foot. IMPRESSION: [] No evidence of significant iliac vein compression No evidence of peripheral arterial disease PLAN: [] Patient will be managed by center specialists and we will need to come up with a plan for outpatient treatment in addition to outpatient analgesics. We will schedule patient for lower extremity venous Dopplers in the office to assess for superficial venous insufficiency. Would recommend tactile pneumatic compression system secondary to significant lymphedema caused by chronic venous insufficiency. GORDY RICARDO MD Oct 31, 2025 10:10 Electronically Signed by: GORDY RICARDO MD10/31/25 1010 Electronically Co-Signed by: Assessment/Plan: Final diagnosis Bilateral lower extremity swelling with concern for chronic venous stasis POA Possible critical limb ischemia bilateral legs POA rule out Superficial ulcers on bilateral lower extremity with serous drainage POA Hypertension Hyperlipidemia History of chronic anemia History of bladder cancer being followed by Urology as outpatient Systolic murmur Discharge Instructions: Patient to follow with primary care physician, Cardiology and at wound care clinic as an outpatient. Return to the hospital if condition changes. Both the patient and the agreed and understood the information provided. Home Medications: Active Scripts Hydrocodone/Acetaminophen (Hydrocodon-Acetaminophen 5-325) 5 Mg-325 Mg Tablet, 1-2 TAB PO Q4HPRN PRN for pain for 3 Days, #40 TAB 0 Refills Prov:LASHAY GERMAIN MD 11/01/25 Reported Medications Brimonidine Tartrate (Brimonidine Tartrate) 0.2 % Drops, 1 DROP OD BID, #10 ML 0 Refills 10/30/25 Latanoprost (Latanoprost) 0.005 % Drops, 1 DROP OU HS for 30 Days, ML 0 Refills 10/30/25 Ferrous Sulfate (Iron) 325 Mg (65 Mg Iron) Tablet, 1 TAB PO DAILY for 30 Days, #30 TAB 0 Refills 10/30/25 Gabapentin (Neurontin) 300 Mg Capsule, 1 CAP PO DAILY for 30 Days, #90 CAP 0 Refills 10/30/25 Allopurinol (Allopurinol) 100 Mg Tablet, 1 TAB PO DAILY for 30 Days, #30 TAB 0 Refills 10/30/25 Atorvastatin Calcium (LIPITOR) 20 Mg Tab, 20 MG PO HS, TAB 10/30/25 [Vitamin B12] No Conflict Check, 500 MCG PO DAILY 02/13/24 Aspirin (ASPIRIN 81 MG ECTAB) 81 Mg Ectab, 81 MG PO HS, TAB.EC 02/13/24 Acetaminophen (Tylenol) 325 Mg Capsule, 650 MG PO Q8H PRN for PAIN, CAP 02/13/24 Folic Acid (Folic Acid) 0.8 Mg Capsule, 0.8 MG PO DAILY, CAP 02/13/24 Ascorbic Acid (Vitamin C) 500 Mg Capsule, 500 MG PO DAILY, CAP 02/13/24 Clopidogrel Bisulfate (Clopidogrel) 75 Mg Tablet, 75 MG PO DAILY, TAB 02/13/24 Omeprazole (Omeprazole) 20 Mg Capsule.dr, 20 MG PO DAILY, CAP 02/13/24 Cholecalciferol (Vitamin D3) (Vitamin D3) 10 Mcg (400 Unit) Tablet, 10 MCG PO DAILY, TAB 02/13/24 Ubidecarenone (Co Q-10) 100 Mg Capsule, 100 MG PO AM, CAP 12/09/23 Spironolactone (Spironolactone) 25 Mg Tablet, 25 MG PO DAILY, TAB 02/13/20 Rosuvastatin Calcium (Rosuvastatin Calcium) 5 Mg Tablet, 5 MG PO QODAY, TAB 02/13/20 Benazepril HCl (Benazepril HCl) 40 Mg Tablet, 40 MG PO HS, TAB 02/13/20 Diltiazem HCl (Diltiazem ER) 360 Mg Tab.er.24h, 360 MG PO DAILY, TAB 02/13/20 Time spent arranging discharge: 31-60 minutes LASHAY GERMAIN MD Nov 01, 2025 11:11
--- NOTE | 2025-11-01 13:29 | NUR ---
DISCHARGE NOTE IV and ID bands removed. Discharge instructions, medications, follow up appointments reviewed with patient and spouse at bedside. Personal items packed by . Wound care teaching performed. Dressing to bilateral legs changed. Dressing to bilateral groin changed. Educated patient on aftercare/dressing care to groin and when to contact physician or return to the ER. Verbalized understanding. Patient taken down via wheelchair to private vehicle.
== END 2025-11-01 13:40 | disposition home or self-care (01) | DRG 300 ==
LOC: EDH 10:49 → DIRECT 10:50 → 4AH 17:30
PROVIDERS: ADMIT Internal Medicine; ATTEND Internal Medicine
PROC: B4101ZZ Fluoroscopy of Abdominal Aorta using Low Osmolar Contrast (ICD-10-PCS; principal; 2025-10-31)
PROC: B41G1ZZ Fluoroscopy of Left Lower Extremity Arteries using Low Osmolar Contrast (ICD-10-PCS; 2025-10-31)
PROC: B41F1ZZ Fluoroscopy of Right Lower Extremity Arteries using Low Osmolar Contrast (ICD-10-PCS; 2025-10-31)
PROC: B44HZZ3 Ultrasonography of Bilateral Lower Extremity Arteries, Intravascular (ICD-10-PCS; 2025-10-31)
PROC: 5A09357 Assistance with Respiratory Ventilation, Less than 24 Consecutive Hours, Continuous Positive Airway Pressure (ICD-10-PCS; 2025-11-01)
DX: I87.2 Venous insufficiency (chronic) (peripheral) (principal); I48.19 Other persistent atrial fibrillation; L97.918 Non-pressure chronic ulcer of unspecified part of right lower leg with other specified severity; I10 Essential (primary) hypertension; L97.928 Non-pressure chronic ulcer of unspecified part of left lower leg with other specified severity; I89.0 Lymphedema, not elsewhere classified; I87.313 Chronic venous hypertension (idiopathic) with ulcer of bilateral lower extremity; M79.89 Other specified soft tissue disorders; E78.5 Hyperlipidemia, unspecified; Z85.51 Personal history of malignant neoplasm of bladder; Z95.818 Presence of other cardiac implants and grafts
CPT/HCPCS: 36012; 36246; 36415; 37252; 37253; 75625; 75716; 75822; 80048; 80053; 83036; 83735; 83880; 84145; 84443; 85025; 85027; 85378; 85610; 85730; 86140; 87070; 87076; 87086; 87186; 93925; 93970; 99156; 99157; C1769; C1894; G0378; J0696; J1644; J2250; J2270; J2919; J3010; J3490; Q0163; Q9967; C1753; C1760; J1308

== ENCOUNTER → 2025-11-04 | Outpatient (CLI) | payer MEDICARE ==
[~2025-11-04] MED LIST changes: +ALLO100T PO; +ATOR10 PO; +BRIM5DRO5 OD; +CEPH500B PO; +FERR-82 PO; +GABA300C PO; +HYDR-4060 PO; +LATA2.5D7 OU; -ROSU5TAB12 PO; +ROSU5TAB51 PO
== END | disposition home or self-care (01) ==
LOC: WHH 09:05
PROVIDERS: ATTEND Family Medicine
DX: L97.312 Non-pressure chronic ulcer of right ankle with fat layer exposed (principal); L97.512 Non-pressure chronic ulcer of other part of right foot with fat layer exposed; L97.822 Non-pressure chronic ulcer of other part of left lower leg with fat layer exposed; L97.322 Non-pressure chronic ulcer of left ankle with fat layer exposed; I10 Essential (primary) hypertension; E78.5 Hyperlipidemia, unspecified; I48.91 Unspecified atrial fibrillation; Z85.50 Personal history of malignant neoplasm of unspecified urinary tract organ
CPT/HCPCS: 29580; A4450; A6456

== ENCOUNTER → 2025-11-10 | Outpatient (CLI) | payer MEDICARE | END | disposition home or self-care (01) | LOC: WHH 10:59 | PROVIDERS: ATTEND Family Medicine | DX: L97.512 Non-pressure chronic ulcer of other part of right foot with fat layer exposed (principal); L97.822 Non-pressure chronic ulcer of other part of left lower leg with fat layer exposed; L97.812 Non-pressure chronic ulcer of other part of right lower leg with fat layer exposed; L97.321 Non-pressure chronic ulcer of left ankle limited to breakdown of skin; L97.312 Non-pressure chronic ulcer of right ankle with fat layer exposed; L97.322 Non-pressure chronic ulcer of left ankle with fat layer exposed; I87.2 Venous insufficiency (chronic) (peripheral); I89.0 Lymphedema, not elsewhere classified; I10 Essential (primary) hypertension; E78.5 Hyperlipidemia, unspecified; I48.19 Other persistent atrial fibrillation; Z79.82 Long term (current) use of aspirin; Z85.51 Personal history of malignant neoplasm of bladder | CPT/HCPCS: 29580; A6456 ==

== ENCOUNTER → 2025-11-17 | Outpatient (CLI) | payer MEDICARE | END | disposition home or self-care (01) | LOC: WHH 10:55 | PROVIDERS: ATTEND Family Medicine | DX: E11.621 Type 2 diabetes mellitus with foot ulcer (principal); L97.512 Non-pressure chronic ulcer of other part of right foot with fat layer exposed; L97.822 Non-pressure chronic ulcer of other part of left lower leg with fat layer exposed; L97.312 Non-pressure chronic ulcer of right ankle with fat layer exposed; L97.322 Non-pressure chronic ulcer of left ankle with fat layer exposed; L97.812 Non-pressure chronic ulcer of other part of right lower leg with fat layer exposed; I87.8 Other specified disorders of veins; I10 Essential (primary) hypertension; E78.5 Hyperlipidemia, unspecified; I48.91 Unspecified atrial fibrillation; Z85.51 Personal history of malignant neoplasm of bladder | CPT/HCPCS: G0463; A6250 ==